=== PATIENT | male | born 1975 | race Caucasian/White ===

== ENCOUNTER 2024-09-05 11:31 | Emergency (ER) | payer OTHER, SELFPAY ==
[2024-09-05 11:38] VITALS: BP 158/97; PULSE 62; RESP 18; TEMP 36.3; O2SAT 99; BMI 33.6
--- NOTE | 2024-09-05 11:46 | ED_ITS ---
HPI - General Adult General Chief complaint: Animal Bite Stated complaint: facial dog bite Time Seen by Provider: 09/05/24 11:46 Source: patient, RN notes reviewed and old records reviewed Mode of arrival: ambulatory Limitations: no limitations History of Present Illness ED Provider: Pete GRUBBS narrative: 49-year-old male presents for evaluation of a dog bite. Patient reports that he was bit by his own dog 2 days ago. He was bit on the nose and upper lip. He went to [facility] the time of the injury but left without being seen due to wait time. He tried to follow up with his primary doctor to get antibiotics but they referred him back to the emergency department. Patient reports that he found a chunk of his nose on the ground when he cleaned up the mess. His pain worsened this morning prompting him to seek re-evaluation. Denies any fevers or chills He reports that his dog was given its rabies shots the dog has been put down Related Data Previous Rx's ?Medication ?Instructions ?Recorded amoxicillin 875 mg-potassium 1 tab PO Q12H #20 tabs 09/05/24 clavulanate 125 mg tablet Allergies Allergy/AdvReac Type Severity Reaction Status Date / Time No Known Allergies Allergy Unknown Verified 09/05/24 11:39 Review of Systems 2 Constitutional: Constitutional: Denies body ache(s), Denies chills, Denies fever(s) and Denies headache(s) ENT: Denies headache(s) Cardiovascular: Cardiovascular: Denies chest pain and Denies dyspnea Respiratory: Respiratory: Denies cough and Denies dyspnea Integumentary/Breasts: Skin/Breast: Reports erythema and Reports wounds Neurologic: Denies headache(s) PMFSH Social History Social History Advance Directives: No Advance Directives Information Provided: Yes Physical Exam ED Vital Signs: Vital Signs - 24 hr 09/05/24 11:38 09/05/24 12:07 Temperature 97.3 F 97.3 F Pulse Rate 62 62 Respiratory Rate 18 18 Blood Pressure 158/97 H 158/97 H Pulse Oximetry 99 99 Oxygen Delivery Method Room Air Room Air BMI result Body Mass Index 33.6 Const General: healthy appearing, comfortable, no acute distress, alert and awake Nutritional Appearance: well nourished Orientation/consciousness: patient oriented x3 HENMT Other: There is a bite wound to the right side of the nose. There is a small avulsion injury of the skin of the nose. There is some surrounding erythema and edema. No active drainage. There is a small contusion to the upper lip without puncture wound. No septal hematoma or intranasal abscess Eyes Eyelids: Yes eyelids normal Conjunctivae: conjunctivae normal Sclerae: sclerae normal Corneas: corneas normal Pupils: Equal, round and reactive pupils present EOM: EOMs intact bilaterally Neck Neck: Yes full ROM Resp Effort & Inspection: normal respiratory effort, able to speak in complete sentences and not labored GI Inspection: No distended Palpation (GI): Soft to palpation, not firm, nontender, no guarding and not rigid Skin General skin exam: elasticity normal Neuro General: patient oriented x3 Cranial nerves: Yes Equal, round and reactive pupils present and Yes Bilaterally intact EOM present Cognition (Neuro): normal cognition Extrem Other: Moving all extremities well without any obvious deformities Medications Administered Discontinued Medications Generic Name Dose Route Start Last Admin Trade Name Freq PRN Reason Stop Dose Admin Amoxicillin/Clavulanate Potassium 875 mg 09/05/24 11:46 09/05/24 12:06 Amoxicillin/Potassium Clav 875 Mg Tablet PO 09/05/24 11:47 875 mg ONCE ONE Administration Diphtheria/Tetanus/Acell Pertussis 0.5 ml 09/05/24 11:46 09/05/24 12:06 Diphth,Pertus(Acell),Tet Adult 0.5 Ml Syringe IM 09/05/24 11:47 0.5 ml .ONCE ONE Administration Medical Decision Making Medical Decision Making MDM Narrative: 49-year-old male presents for evaluation of a dog bite to his nose. This was his own dog which she ultimately already put down. The patient does not know when his last tetanus was. He will require Augmentin for the dog bite as he is developing a skin infection of the nose. Tetanus will be updated. There was no evidence of drainable abscess. Wound was cleaned. He will be discharged with the oral antibiotics and encouraged to follow up with his primary doctor. He was encouraged to follow up with Plastic surgery for follow-up as well. Differential Diagnosis Differential Diagnoses: The differential diagnosis associated with the presentation includes Dog bite Puncture wound Cellulitis Abscess Discharge Plan Discharge Clinical Impression: Dog bite Patient Disposition: Home, Self-Care Instructions: Animal Bite (ED) Additional Instructions: Apply Bacitracin topically twice per day Take Augmentin twice daily for 10 days. Your tetanus was updated today and is good for 5-10 years. It is very important to keep the wound out of the sun When the wound heals, you should be diligent about applying sunscreen throughout the summer. Follow up with your primary doctor. You may wish to see plastic surgery for a consult depending on how the wound heals. Prescriptions: New amoxicillin-pot clavulanate 875-125 mg tablet 1 tab PO Q12H Qty: 20 0RF Interventions: ED Discharge Assessment Last Done: 09/05/24 12:07 Discharge Date/Time: 09/05/24 12:16 Print Language: Italian
[2024-09-05] MEDS: Amoxicillin/Potassium Clav 875 MG TABLET PO (12:06)
[2024-09-05] MEDS: Diphth,Pertus(ACell),Tet Adult 0.5 ML SYRINGE IM (12:06)
[2024-09-05 12:07] VITALS: BP 158/97; PULSE 62; RESP 18; TEMP 36.3; O2SAT 99
--- OUTSIDE RECORDS SUMMARY | 2024-09-05 12:51 | XMS_ITS | Encounter Summary ---
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 Name Role Phone Unavailable Primary Care Provider Unavailabl e Reason for Visit * Reason Comments Animal Bite UNKNOWN VACCINES Encounter Details Date Type Department Care Team (Late st Contact Info) Description 09/03/2024 10:49 PM EDT - 09/04/2024 12:58 AM EDT Emergency [facility] Emergency [address] [place] [address] Discharge Disposition: Home or Self Care Social History Tobacco Use Types Packs/Day Years Used Date Smoking Tobacco: Never Assessed Sex and Gender Information Value Date Recorded Sex Assigned at Not on file Legal Sex Male 8:24 PM EST Gender Identity Not on file Sexual Orientation Not on file documented as of this encounter Last Filed Vital Signs Vital Sign Reading Time Taken Comments Blood Pressure 146/88 09/03/2024 11:09 PM EDT Pulse 78 09/03/2024 11:09 PM EDT Temperature 36.6 ??C (97.9 ??F) 09/03/2024 11:09 PM E DT Respiratory Rate 20 09/03/2024 11:09 PM EDT Oxygen Saturation 97% 09/03/2024 11:09 PM EDT Inhaled Oxygen Concentration - - Weight 106 kg (234 lb) 09/03/2024 11:09 PM EDT Height 177.8 cm (5' 10 ) 09/03/2024 11:09 PM EDT Body Mass Index 33.58 09/03/2024 11:09 PM EDT documented in this encounter Discharge Disposition Disposition Code Departure Means Destination Comment s Home or Self Care Educated against leaving and receiving proper and timely wound care. Verbalized understanding, stating he is leaving and will return in the morning. documented in this encounter Progress Notes * Elis Cain RN - 09/03/2024 11:10 PM EDT PT WAS PLAYING WITH DOG WHEN HE WAS BIT ON THE FACE. UNKNOWN VACCINE STATUS OF DOG. PT MISSING THE TIP OF HIS NOSE. MD IN TRIAGE TO ASSESS PT. GAUZE APPLIED. documented in this encounter Plan of Treatment Not on file documented as of this encounter Visit Diagnoses Not on filedocumented in this encounter
--- OUTSIDE RECORDS SUMMARY | 2024-09-05 12:51 | XMS_ITS | Clinical Summary ---
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 Name Role Phone Unavailable Primary Care Provider Unavailabl e Allergies No known active allergies Encounters Date Type Department Care Team Description 09/03/2024 10:49 PM EDT - 09/04/2024 12:58 AM EDT Emergency [facility] Emergency [address] [place] [address] Discharge Disposition: Home or Self Care from Last 3 Months Medical History Medical History Date Comments AK (mitral incompetence) Social History Tobacco Use Types Packs/Day Years Used Date Smoking Tobacco: Never Assessed Sex and Gender Information Value Date Recorded Sex Assigned at Not on file Legal Sex Male 8:24 PM EST Gender Identity Not on file Sexual Orientation Not on file Obstetrics History Last Filed Vital Signs Vital Sign Reading [...] Mass Index 33.58 09/03/2024 11:09 PM EDT Plan of Treatment Health Maintenance Due Date Last Done Comments Hepatitis B Vaccines (1 of 3 - 19+ 3-dose series) 07/21/1994 COVID-19 Vaccine (2023-2 5 season) 2023 Cholesterol Screening (Lipid Panel) 02/16/2024 Colorectal Cancer Screening: Colonoscopy 02/16/2024 Depression Screening 02/16/2024 HIV Screening 02/16/2024 Hepatitis C Screening 02/16/2024 Social Influencers of Health Screening 02/16/2024 Hypertension/CHF/CAD Annual BMP Blood Test 09/04/2024 Influenza Vaccine (Season Ended) 2024 05/27/2019, 04/01/2013 DTaP,Tdap,and Td Vaccines (3 - Td or Tdap) 05/27/2029 05/27/2019, 04/01/2013 Pneumococcal Vaccine: Pediatrics (0 to 5 Years) and At-Risk Patients (6 to 64 Years) Completed 09/20/2022 HIB Vaccines Aged Out No longer eligi ble based on patient's age to complete this topic HPV Vaccines Aged Out No longer eligi ble based on patient's age to complete this topic Hepatitis A Vaccines Aged Out No long er eligible based on patient's age to complete this topic IPV Vaccines Aged Out No longer eligi ble based on patient's age to complete this topic MMR Vaccines Aged Out No longer eligi ble based on patient's age to complete this topic Meningococcal ACWY Vaccine Aged Out N o longer eligible based on patient's age to complete this topic Meningococcal B Vaccine Aged Out No l onger eligible based on patient's age to complete this topic RSV Immunization Patients Under 20 months Aged Out No longer eligible b ased on patient's age to complete this topic Varicella Vaccines Aged Out No longer eligible based on patient's age to complete this topic
== END 2024-09-05 12:16 | disposition home or self-care (01) ==
PROVIDERS: Emergency Provider Emergency Medicine Emergency Medical Services; PCP Nurse Practitioner Family
DX: S01.25XA Open bite of nose, initial encounter (principal); S01.551A Open bite of lip, initial encounter; W54.0XXA Bitten by dog, initial encounter; Y93.9 Activity, unspecified; Y92.9 Unspecified place or not applicable; Y99.9 Unspecified external cause status
CPT/HCPCS: 90471; 90715; 99282; 99284

== ENCOUNTER 2025-01-04 15:10 | Inpatient (IN) | payer OTHER, SELFPAY ==
[2025-01-04] VITALS (33 sets, daily range): BP systolic 93–184; BP diastolic 46–104; PULSE 67–107; RESP 16–21; TEMP 35–36.9; O2SAT 86–99; BMI 39.5; BMI 37.6
--- NOTE | ~2025-01-04 | XR_ITS ---
CLINICAL HISTORY: intubated 1 view chest x-ray. Comparison:: 01/04/2025 Findings: No consolidation. No pneumothorax. Heart size stable and unchanged from previous exam. No acute fracture. Impression: Poor inspiratory effort with crowding of blood vessels and mild atelectasis in both lung bases. Transesophageal gastric catheter is coiled in the body and antrum of the stomach. Endotracheal tube tip is located 4.5 cm above the fela. No pneumomediastinum. This document has been electronically signed by: Ja White MD on 01/04/2025 17:36:52
--- NOTE | ~2025-01-04 | XR_ITS ---
CLINICAL HISTORY: central line placement 1 view chest x-ray Comparison: CR - XR CHEST 1V - 01/04/25 17:05 EDT Findings: Bibasilar hazy opacities with low lung volumes. There is a small to moderate right pleural effusion, similar to prior. There is a new left IJ central venous catheter, without pneumothorax. Tip is located at the confluence between the left brachiocephalic vein in the SVC. The endotracheal tube tip is located 5 cm above the fela. Enteric tube courses into the stomach, tip is not included on this study. Normal size heart. No acute fracture. IMPRESSION: 1. Left IJ central venous catheter with tip at the confluence with the brachiocephalic vein in the SVC. No pneumothorax. 2. Bibasilar atelectasis and small to moderate right pleural effusion. This document has been electronically signed by: Ramon Chao MD on 01/04/2025 19:35:57
--- NOTE | ~2025-01-04 | XR_ITS ---
CLINICAL HISTORY: possible aspiration, cough --- Additional Notes or Special Instructions: [id number] 1 view chest x-ray Comparison: None provided Findings: The lungs are under expanded. Heart size is normal. No acute fracture. IMPRESSION: 1. No acute cardiopulmonary findings. 2. Lung underexpansion. This document has been electronically signed by: Ritesh Blackwell MD on 01/04/2025 16:32:50
--- NOTE | 2025-01-04 15:37 | ECG_ITS ---
Test Reason : AMS Blood Pressure : */* mmHG Vent. Rate : 70 BPM Atrial Rate : 70 BPM P-R Int : 144 ms QRS Dur : 100 ms QT Int : 454 ms P-R-T Axes : 50 12 14 degrees QTcB Int : 490 ms Normal sinus rhythm RSR' or QR pattern in V1 suggests right ventricular conduction delay Nonspecific T wave abnormality Prolonged QT Abnormal ECG When compared with ECG of 28-Feb-2009 13:54, Vent. rate has decreased by 38 bpm Minimal criteria for Inferior infarct are no longer Present ST no longer depressed in Anterolateral leads Referred By: Baltazar Augustine Electronically Signed By: GRADY IBRAHIM MD
--- NOTE | 2025-01-04 15:41 | ED.PSYCH ---
HPI - Psych General Chief Complaint: Psychiatric Symptoms Stated Complaint: SI, took unk amount of pills, etoh Time Seen by Provider: 01/04/25 15:19 Related Data Home Medications ?Medication ?Instructions ?Recorded ?Confirmed albuterol sulfate 90 mcg/actuation 2 puff inhalation QID PRN wheezing 01/04/25 01/04/25 aerosol inhaler (Ventolin HFA) aspirin 81 mg tablet,delayed 81 mg PO DAILY 01/04/25 01/04/25 release cetirizine 10 mg tablet 10 mg PO DAILY 01/04/25 01/04/25 citalopram 20 mg tablet 20 mg PO DAILY 01/04/25 01/04/25 famotidine 40 mg tablet 40 mg PO BID 01/04/25 01/04/25 fluticasone furoate 100 1 inh inhalation DAILY 01/04/25 01/04/25 mcg/actuation blister powder for inhalation fluticasone propionate 50 1 spray intranasal BID 01/04/25 01/04/25 mcg/actuation nasal spray,suspension Allergies Allergy/AdvReac Type Severity Reaction Status Date / Time No Known Allergies Allergy Unknown Verified 01/04/25 15:52 [facility] Social History Social History Household Members: Unknown / Unable to assess Housing: Unknown / Unable to assess Patient Tobacco Use Status: Tobacco use Unknown Physical Exam Exam: Exam: EXAM: Gen: Arrived ill appearing, diaphoretic. Occassionally aggressive and agitated. pale, occassionally vomiting. Head: Atraumatic Eyes: Anicteric, Normal conjunctiva.pupils 1mm symmetric ENT: Moist mucosa, no pallor. Neck: Supple. Respiratory: Breathing comfortably, No distress.Clear to auscultation bilaterally, symmetric chest expansion, No wheeze, rales, ronchi. Cardiovascular: tachy and regular. No murmurs or rub. Well perfused periphery, warm extremities. No edema. Abdominal: Soft, no objective distension. No palpable masses or obvious organomegaly. No focal tenderness, no guarding, no rebound tenderness or other peritoneal findings. Neuro: Alert. Gross movement of all extremities intact. no convulsive activity Vital signs: See flowsheet Vital Signs: Vital Signs: Last Vital Signs Temp 99 F 01/05/25 21:00 Pulse 63 01/05/25 21:00 Resp 12 01/05/25 21:00 BP 101/53 L 01/05/25 21:00 Pulse Ox 92 01/05/25 21:00 O2 Del Method Mechanical Ventil ation 01/05/25 21:00 FiO2 25 01/05/25 21:00 BMI result Body Mass Index 39.5 Medications Administered Generic Name Dose Route Start Last Admin Trade Name Jesusq PRN Reason Stop Dose Admin Ceftriaxone Sodium 2 gm 01/05/25 12:00 01/05/25 12:01 Ceftriaxone Sodium 2 Gm Vial IVPUSH 2 gm Q24H [place] Administration Chlorhexidine Gluconate 15 ml 01/04/25 18:00 01/05/25 16:19 Chlorhexidine Gluc Oral Rinse 15 Ml Mouthwash BUCCAL 15 ml Q8H [place] Administration Heparin Sodium (Porcine) 5,000 unit 01/04/25 18:00 01/05/25 18:00 Heparin Sodium,Porcine 5,000 Unit/Ml Vial SUBCUT 5,000 unit Q8H BR[place] Administration Norepinephrine Bitartrate 8 mg in 250 mls @ 0 mls/hr 01/04/25 17:00 01/05/25 14:36 Levophed IVCONT 0 mcg/kg/min .Q0M BR[place] 0 mls/hr Protocol Titration Per Protocol Propofol 1,000 mg in 100 mls @ 0 mls/hr 01/04/25 17:30 01/05/25 20:25 Diprivan IVCONT 50 mcg/kg/min .Q0M BR[place] 37.42 mls/hr Protocol Administration Per Protocol Fentanyl 1,000 mcg in 100 mls @ 0 mls/hr 01/04/25 17:30 01/05/25 19:45 Sublimaze/Ns IVCONT 50 mcg/hr .Q0M BR[place] 5 mls/hr Protocol Administration Per Protocol Lactated Ringer's 1,000 mls @ 100 mls/hr 01/04/25 18:00 01/05/25 14:34 Lr IVCONT Not Given .Q10H [place] Dextrose/Sodium Chloride 1,000 mls @ 100 mls/hr 01/04/25 23:30 01/05/25 18:08 D5ns IVCONT 100 mls/hr .Q10H [place] Administration Pantoprazole Sodium 40 mg 01/05/25 06:30 01/05/25 05:56 Pantoprazole Sodium 40 Mg/10 Ml Vial IVPUSH 40 mg DAILY@0630 [place] Administration Discontinued Medications Generic Name Dose Route Start Last Admin Trade Name Marlene PRN Reason Stop Dose Admin Charcoal 50 gm 01/04/25 17:22 01/04/25 18:11 Activated Charcoal 50 Gm/240 Ml Oral.Susp PO 01/04/25 17:23 50 gm ONCE ONE Administration Dextrose 25 gm 01/04/25 23:19 01/04/25 23:30 Dextrose 50 % 25 Gm/50 Ml Syringe IVPUSH 01/04/25 23:20 25 gm ONCE ONE Administration Lactated Ringer's 1,000 mls @ 999 mls/hr 01/04/25 15:45 01/04/25 17:45 Lr IV 01/04/25 16:45 Infused .Q1H1M [place] Infusion Lactated Ringer's 1,000 mls @ 999 mls/hr 01/04/25 17:15 01/04/25 18:03 Lr IV 01/04/25 18:15 Infused .Q1H1M [place] Infusion Pantoprazole Sodium 40 mg/ 110 mls @ 400 mls/hr 01/04/25 18:00 01/04/25 20:38 Sodium Chloride IV Infused DAILY@0630 [place] Infusion Insulin Human Regular 10 unit 01/04/25 23:19 01/04/25 23:30 Insulin Regular, Human 100 Unit/Ml 10 Ml Vial IVPUSH 01/04/25 23:20 10 unit ONCE ONE Administration Midazolam HCl 4 mg 01/04/25 17:14 01/04/25 17:13 Midazolam Hcl 2 Mg/2 Ml Vial IVPUSH 01/04/25 17:15 4 mg ONCE ONE Administration Rocuronium [place] 80 mg 01/04/25 17:10 01/04/25 16:57 Rocuronium [place] 50 Mg/5 Ml Vial IVPUSH 01/04/25 17:11 80 mg ONCE ONE Administration Sodium Bicarbonate 50 meq 01/05/25 00:39 01/05/25 01:09 Sodium Bicarbonate 8.4% 50 Meq/50 Ml Syringe IVPUSH 01/05/25 00:40 50 meq ONCE ONE Administration Medical Decision Making Medical Decision Making MDM Narrative: Medical Decision Makin-year-old male with suicidal ingestion. Polypharmacy ingestion with best estimates provided below. Patient arrived hypoxic on room air 86% put on OxyMask. He was initially normotensive sinus rhythm in the 70s. He did not provide any history himself. Patient quickly became diaphoretic and hypotensive we initiated the aggressive crystalloid resuscitation. Initial QTC 490 slightly prolonged. A sinus rhythm no ischemic changes. The patient does have a history of coronary artery disease QTc on first ecg 490. Around 17:05 the patient became more sedated, he began vomiting without airway protective reflexes and we decided to intubate him. Norepinephrine was initiated prior to intubation to prevent developing Justino intubation shock. After the procedure which was successful see procedure note, the patient was sedated with propofol and fentanyl. Preliminary Favored Differential Diagnosis: Polypharmacy ingestion, serotonin syndrome, QT prolongation, metabolic encephalopathy, psych/suicidal ideation with ingestion, hypovolemic shock, toxic logic shock, aspiration pneumonitis among additional considered etiologies Testing Interpreted Independently: ECG QTC 490 no acute ischemic changes. Sinus rhythm. Chest x-ray 1.: ET tube adequate position, OG tube in place adequate poor inspiratory effort and/or at the expiratory cycle of vent. Chest x-ray 2.: Adequate position of left IJ Radiology or Lab testing Results Reviewed: ?See below for details Consults: ?Poison control recommends Q 2hr VBG/lactic acid for the 1st 3 hours recommended charcoal through the OG tube. Bakery Technician accepts the patient for admission agreeable to care provided thus far Independent Historians/External Chart Reviews: ?I spoke at length to the patient's partner who was at home we discussed and went through the medication bottles Social Determinants of Health Impacting MDM/Planning: ?See below for details Lab Data MDM Lab Attestation statement: I reviewed the patient's lab results. 01/05/25 05:53 01/05/25 11:34 Labs: Lab Results 01/04/25 01/04/25 Range/Units 15:44 16:09 WBC 7.4 (4.8-10.8) X10*3/uL RBC 4.42 L (4.60-5.80) X10*6/uL Hgb 14.1 (14.0-18.0) g/dl Hct 39.8 L (42.0-52.0) % MCV 90.0 (80.0-98.0) fL MCH 31.9 (27.0-33.0) pg MCHC 35.4 (31.0-36.0) g/dl RDW 13.2 (11.0-16.0) % Plt Count 250 (160-400) X10*3/uL MPV 9.9 (9.4-12.4) fL Immature Gran % (Auto) 0.5 H (0.0-0.4) % Neut % (Auto) 60.0 (45-73) % Lymph % (Auto) 26.4 (20-40) % [place] % (Auto) 9.5 (2-11) % Eos % (Auto) 2.8 (0-4) % Baso % (Auto) 0.8 (0-2) % Lymph # (Auto) 2.0 (1.2-4.9) X10*3/uL [place] # (Auto) 0.7 (0.1-1.2) X10*3/uL Eos # (Auto) 0.2 (0.0-0.4) X10*3/uL Baso # (Auto) 0.1 (0.0-0.2) X10*3/uL Abs Immat Gran (auto) 0.04 H (0.00-0.03) X10*3/uL Absolute Neuts (auto) 4.4 (2.0-8.3) x10*3/uL Absolute Nucleated RBC 0.000 (0.0-0.012) X10*3/uL Nucleated RBC % (auto) 0.0 (0.0-0.2) /100WBC Hold Purple Top SEE NOTE Hold Blue Top SEE NOTE Sodium 137 (135-145) mmol/L Potassium 4.4 (3.3-5.1) mmol/L Chloride 103 (96-108) mmol/L Carbon Dioxide 19 L (22-29) mmol/L Anion Gap 19 (12-20) BUN 17 H (9-16) mg/dL Creatinine 1.40 (0.5-1.4) mg/dL Estim Creat Clear Calc 84.5 Estimated GFR 54 POC Glucose 123 H (60-115) mg/dL Random Glucose 114 (60-115) mg/dL Lactic Acid 2.9 H* (0.5-2.0) mmol/L Calcium 9.0 (8.4-10.2) mg/dL Phosphorus 3.8 (2.7-4.5) mg/dL Magnesium 2.6 (1.6-2.6) mg/dL Total Bilirubin 0.4 (0.0-1.0) mg/dL AST 39 H (5-37) U/L ALT 49 H (0-40) U/L Alkaline Phosphatase 80 (39-117) U/L Total Protein 7.7 (6.5-8.0) g/dL Albumin 4.9 (3.5-5.0) g/dL TSH 2.27 (0.32-4.0) uIU/mL Hold Yellow Top See Note Salicylates < 5.0 L (15-30) mg/dL Acetaminophen < 3 (<30) mcg/mL Ethyl Alcohol 135 mg/dL Radiology Impression Discussion of test interpretation with radiology: I have reviewed the radiologist's reading. Independent Historian Clinical information obtained from an independent historian. History obtained from or confirmed by: Other Female partner/girlfriend I spoke to the phone on her at about 16:20 she did not witnessed the patient directly ingesting medications but she has the bottles with her we tried to go through them together over the phone to see how much was missing. In summary it appears the patient took unknown quantity of 40 mg citalopram he did have a total of 90 day supply but she is unclear based on the bottles and some scattered pills on the floor how much of that he took. There was a bottle of ibuprofen that appeared empty to her on the floor outside the home. There was a bottle of olanzapine that it was questionably a 90 day supply of 7.5 mg tablets that she believes was half empty. There was also a half empty bottle of 500 mg metformin tablets she is unsure of the duration supply that was in that bottle. In summary: Unknown 40 mg citalopram ingestion, unknown ibuprofen ingestion, best estimate half 45 tablets of 7.5 mg olanzapine, best estimate large volume metformin 500 mg ingestion. Procedures Procedure Narrative Procedure Narrative: PROCEDURE NOTE Procedure: Endotracheal Intubation Performed by: Baltazar Augustine MD Indication: Indication [place] Protocol: a time out was performed and the correct patient was verified ? Monitoring: Continuous monitoring of heart rate, respiratory rate, pulse oximetry and ETCO2. Pre-oxygenation prior to procedure via OxyMask. ? The patient was s did not require sedation and was paralyzed with rocuronium. Using video laryngoscopy, a # 7.5 endotracheal tube was visualized passing through the cords and secured . Placement was confirmed with end-tidal CO2 monitor, bilateral breath sounds and absence of breath sounds in the epigastrium. ? The patient was placed on the ventilator. Ventilator settings: ? The patient tolerated the procedure well. Post intubation films were obtained which showed proper placement and position. __ PROCEDURE NOTE Procedure: OG Placement Performed by: Provider Name Indication: gastric decompression ? Procedure: A 14 Fr OG tube was placed in the stomach through the mouth.? Position of the tube was confirmed by auscultating over the stomach during insufflation of air through the tube.? Gastric contents were aspirated. Complications: none ___ Procedure Note Procedure: Central Venous Catheter Insertion- Left Internal Jugular Indication: Venous access, multiple medications, monitoring Performed by: Baltazar Augustine MD [place] Protocol: a time out was performed and the correct patient and site were verified ? The patient was placed in Trendelenburg. Anesthesia was obtained with local infiltration of 5 ml 1% lidocaine. Hand hygiene was performed prior to procedure. Chlorhexidine used to prep the skin and dried for 2 minutes prior to skin puncture. Traffic was limited during the procedure. Full barrier precaution utilized.? Dynamic ultrasound guidance used and the left internal jugular vein was cannulated. A 7 marshallese triple lumen catheter was placed using the Seldinger technique. All lines flushed and jarrett nonpulsatile dark venous blood appropriately. The line was secured with sutures at 16? cm. A biopatch and dressing was placed over the site. The patient tolerated the procedure well. A post-line CXR was reviewed demonstrating the tip of the catheter in the SVC. ? Post-Procedure Diagnosis: same as indication Complications: none Estimated Blood Loss:? minimal Specimens Removed: no Prosthetic devices/implants: no Microwave Radio Technician(s): none ? Critical Care Time Critical Care Time Critical Care Time: Yes Total Critical Care Time: 90 Attestation: ED Critical Care: Severe metabolic encephalopathy/overdose QT prolongation, aspiration pneumonitis, acute hypoxic respiratory failure Authorized and Performed by: Baltazar Augustine MD Total critical care time: Approximately 90 Due to a high probability of clinically significant, life threatening deterioration, the patient required my highest level of preparedness to intervene emergently and I personally spent this critical care time directly and personally managing the patient. This critical care time included obtaining a history; examining the patient; pulse oximetry; ordering and review of studies; arranging urgent treatment with development of a management plan; evaluation of patient's response to treatment; frequent reassessment; and, discussions with other providers. This critical care time was performed to assess and manage the high probability of imminent, life-threatening deterioration that could result in multi-organ failure. It was exclusive of separately billable procedures and treating other patients and teaching time. Discharge Plan Discharge Clinical Impression: Intentional drug overdose Patient Disposition: Admitted As Inpatient Interventions: [place]-Suicide Risk Severity Scale Last Done: 01/04/25 16:40 Discharge Date/Time: 01/04/25 19:38
[2025-01-04 15:50] LABS: MANUAL DIFF FLAG NO
[2025-01-04 15:51] LABS: Hematocrit 39.8 % (42.0-52.0); Hemoglobin 14.1 g/dl (14.0-18.0); Imm Gran Abs Auto 0.04 X10*3/uL (0.00-0.03); Imm Gran Pct Auto 0.5 % (0.0-0.4); Lymphocytes Absolute Auto 2.0 X10*3/uL (1.2-4.9); Mean Corpuscular HGB Conc 35.4 g/dl (31.0-36.0); Mean Corpuscular Hemoglobin 31.9 pg (27.0-33.0); Mean Corpuscular Volume 90.0 fL (80.0-98.0); NRBC Abs Auto 0.000 X10*3/uL (0.0-0.012); NRBC Pct Auto 0.0 /100WBC (0.0-0.2); Platelet Count 250 X10*3/uL (160-400); Red Blood Count 4.42 X10*6/uL (4.60-5.80); White Blood Count 7.4 X10*3/uL (4.8-10.8)
[2025-01-04 16:13] LABS: Glucose, Whole Blood 123 mg/dL (60-115)
[2025-01-04 16:14] LABS: Alanine Aminotransferase 49 U/L (0-40); Albumin Level 4.9 g/dL (3.5-5.0); Alkaline Phosphatase 80 U/L (39-117); Anion Gap 19 (12-20); Aspartate Amino Transferase 39 U/L (5-37); Blood Urea Nitrogen 17 mg/dL (9-16); Calcium 9.0 mg/dL (8.4-10.2); Carbon Dioxide 19 mmol/L (22-29); Chloride 103 mmol/L (96-108); Creatinine Clr Calc Pharmacy 84.5; Estimated Glomerular Filt Rate 54; Magnesium 2.6 mg/dL (1.6-2.6); Potassium 4.4 mmol/L (3.3-5.1); Sodium 137 mmol/L (135-145); Total Protein 7.7 g/dL (6.5-8.0)
[2025-01-04] MEDS: Lactated Ringers 1,000 ML 999 ML IV ×2 (16:18→16:58)
[2025-01-04 16:21] LABS: Acetaminophen LAB < 3 mcg/mL (<30); Salicylate < 5.0 mg/dL (15-30)
--- OUTSIDE RECORDS SUMMARY | 2025-01-04 16:27 | XMS_ITS | Clinical Summary ---
Author Organization [facility] Address [address] [place] [phone] Phone Care Team Providers Care Registered Nurse Ambulatory Name Role Phone Unavailable Primary Care Provider Unavailabl e Allergies No known active allergies Medical History Medical History Date Comments HI (mitral incompetence) Social History Tobacco Use Types [...] 78 09/03/2024 11:09 PM EDT Temperature 36.6 C (97.9 F) 09/03/2024 11:09 PM EDT Respiratory Rate 20 09/03/2024 11:09 PM EDT [...] of 3 - 19+ 3-dose series) 07/21/1994 Cholesterol Screening (Lipid Panel) 02/16/2024 Colorectal Cancer Screening: Colonoscopy 02/16/2024 HIV Screening 02/16/2024 Hepatitis C Screening 02/16/2024 Social Influencers of Health Screening 02/16/2024 Depression Screening 04/24/2024 Hypertension/CHF/CAD Annual BMP Blood Test 09/04/2024 COVID-19 Vaccine ( - 2023-2 5 season) 2024 Influenza Vaccine (#1) 2024 0, 04/01/2013 DTaP,Tdap,and Td Vaccines (3 - Td or Tdap) 05/27/2029 05/27/2019, 04/01/2013 Pneumococcal Vaccine: Pediatrics (0 to 5 Years) and At-Risk Patients (6 to 49 Years) Completed 09/20/2022 HIB Vaccines Aged Out [...] on patient's age to complete this topic Insurance [place] - [place]
[2025-01-04 16:28] LABS: Thyroid Stimulating Hormone 2.27 uIU/mL (0.32-4.0)
--- NOTE | 2025-01-04 16:31 | PC.NURSE ---
late entry PD to residence for suicidal patient, upon their arrival they stated that patient ingested multiple unknown medications. for EMS, patient was awake and answering questions. upon patient arrival to ED increasingly drowsy/lethargic/hypoxic - placed on oxymask 7L. unable to answer questions at this time. pin point pupils, security at bedside to assist with changeover, patient projectile vomiting. multiple staff at bedside to assist with changeover and iv insertion as patient remains altered and combative. responds to painful stimuli. IV successfully established in LAC. patient found to be diaphoretic and hypotensive, provider to bedside. IV fluids infusing with pressure bag. additional IV established. provider able to speak with partner on phone who states Unknown 40 mg citalopram ingestion, unknown ibuprofen ingestion, best estimate half 45 tablets of 7.5 mg olanzapine, best estimate large volume metformin 500 mg ingestion. patient observer is in place for patient safety.
--- NOTE | 2025-01-04 17:14 | ECG_ITS ---
Test Reason : rhythm check Blood Pressure : */* mmHG Vent. Rate : 74 BPM Atrial Rate : 74 BPM P-R Int : 170 ms QRS Dur : 98 ms QT Int : 412 ms P-R-T Axes : 49 -1 15 degrees QTcB Int : 457 ms Normal sinus rhythm RSR' or QR pattern in V1 suggests right ventricular conduction delay Borderline ECG When compared with ECG of 04-Jan-2025 16:12, T wave inversion no longer evident in Anterior leads Referred By: Grupo Cifuentes Electronically Signed By: GRADY IBRAHIM MD
[2025-01-04] MEDS: fentaNYL citrate/NS 1,000 MCG/100 ML PLAST..BAG 2.5 MCG IVCONT (17:54)
[2025-01-04 17:57] LABS: Reflex Lactate? Lactic Acid Added
--- NOTE | 2025-01-04 18:03 | P.HPCC_ITS ---
History of Present Illness Date of Service: 01/04/25 Chief Complaint: unresponsive 49 years old male with PMH of possibly diabetes and depression presented to the hospital with suiscidal ideation after ingesting large amount of metformin, olanzapine and ibuprofen. He became hypotensive and diaphoretic and actively vomiting and aspirating so was intubated and placed on ventilator support. He is also on levophed for vasopressor support. His QTc is 490 Review of Systems 2 Review of Systems: unable to obtain [facility] Social History Social History Advance Directives: No Advance Directives Information Provided: No Meds Allergies Allergy/AdvReac Type Severity Reaction Status Date / Time No Known Allergies Allergy Unknown Verified 01/04/25 15:52 Active Medications: Current Medications Chlorhexidine Gluconate (Chlorhexidine Gluc Oral Rinse 15 Ml Mouthwash) 15 ml BUCCAL Q8H [place] Heparin Sodium (Porcine) (Heparin Sodium,Porcine 5,000 Unit/Ml Vial) 5,000 unit SUBCUT Q8H [place] Norepinephrine Bitartrate (Levophed) 8 mg in 250 mls @ 0 mls/hr IVCONT .Q0M BR[place]; Protocol Last Admin: 01/04/25 16:57 Dose: 0.05 mcg/kg/min, 11.69 mls/hr Lactated Ringer's (Lr) 1,000 mls @ 999 mls/hr IV .Q1H1M [place] Stop: 01/04/25 18:15 Last Admin: 01/04/25 16:58 Dose: 999 mls/hr Propofol (Diprivan) 1,000 mg in 100 mls @ 0 mls/hr IVCONT .Q0M [place]; Protocol Last Admin: 01/04/25 17:47 Dose: 30 mcg/kg/min, 22.45 mls/hr Fentanyl (Sublimaze/Ns) 1,000 mcg in 100 mls @ 0 mls/hr IVCONT .Q0M [place]; Protocol Last Admin: 01/04/25 17:54 Dose: 25 mcg/hr, 2.5 mls/hr Lactated Ringer's (Lr) 1,000 mls @ 100 mls/hr IVCONT .Q10H [place] Pantoprazole Sodium 40 mg/ (Sodium Chloride) 110 mls @ 400 mls/hr IV DAILY@0630 [place] Fentanyl (Sublimaze/Ns) 1,000 mcg in 100 mls @ 5 mls/hr IVCONT .Q20H BR[place]; Protocol Naloxone HCl (Naloxone Hcl 0.4 Mg/Ml Vial) 0.2 mg IVPUSH Q2M PRN PRN Reason: Excessive sedation or RR < 8 Naloxone HCl (Naloxone Hcl 0.4 Mg/Ml Vial) 0.2 mg IVPUSH Q2M PRN PRN Reason: Excessive sedation or RR < 8 Physical Exam 2 Vital Signs: Vital Signs: Last Vital Signs Temp 97.5 F 01/04/25 15:50 Pulse 83 01/04/25 17:47 Resp 20 01/04/25 17:47 BP 104/56 L 01/04/25 17:54 Pulse Ox 94 01/04/25 17:47 O2 Del Method Room Air 01/04/25 15:50 FiO2 30 01/04/25 17:25 BMI result Body Mass Index 39.5 General: middle aged male in severe acute distress, ill appearing Nutritional Appearance: well nourished and overweight Eyes: appearance normal, both eyes and all related structures; Alignment and Position: alignment normal and position normal Neck: No lymphadenopathy, no thyromegaly Resp: bilateral air entry equal, no added sounds present Cardio: Regular rate, regular rhythm; Heart sounds: S1 normal heart sound present and S2 normal heart sound present GI: soft, nontender, no guarding, no hepatosplenomegaly : bladder normal to inspection, bladder normal to palpation, no renal angle tenderness Skin: no rashes or lesions noted and elasticity normal Neuro: no focal deficits, moves all extremities Results Labs 01/04/25 15:44 01/04/25 15:44 Labs: Laboratory Results - last 24 hr 01/04/25 01/04/25 15:44 16:09 MCV 90.0 MCH 31.9 MCHC 35.4 RDW 13.2 Plt Count 250 MPV 9.9 Immature Gran % (Auto) 0.5 H Neut % (Auto) 60.0 Lymph % (Auto) 26.4 [place] % (Auto) 9.5 Eos % (Auto) 2.8 Baso % (Auto) 0.8 Lymph # (Auto) 2.0 [place] # (Auto) 0.7 Eos # (Auto) 0.2 Baso # (Auto) 0.1 Abs Immat Gran (auto) 0.04 H Absolute Neuts (auto) 4.4 Absolute Nucleated RBC 0.000 Nucleated RBC % (auto) 0.0 Hold Purple Top SEE NOTE Hold Blue Top SEE NOTE Anion Gap 19 Estim Creat Clear Calc 84.5 Estimated GFR 54 POC Glucose 123 H Random Glucose 114 Lactic Acid 2.9 H* Calcium 9.0 Phosphorus 3.8 Magnesium 2.6 Total Bilirubin 0.4 AST 39 H ALT 49 H Alkaline Phosphatase 80 Total Protein 7.7 Albumin 4.9 TSH 2.27 Hold Yellow Top See Note Salicylates < 5.0 L Acetaminophen < 3 Ethyl Alcohol 135 Assessment and Plan (1) Drug overdose, intentional: Status: Acute (2) Suicidal ideation: Status: Acute (3) Acute respiratory failure: Status: Acute (4) Acute encephalopathy: Status: Acute (5) Cardiogenic shock: Status: Acute Plan Acute encephalopathy: secondary to multiple drug overdose due to suicidal ideation on fentanyl for analgesia and propofol for sedation psych consult once extubated Cardiogenic shock: secondary to multiple medication intake on levophed for vasopressor support karyna monitor QT interval as he ingested multiple pills of olanzapine. Acute hypoxemic respirtory failure: secondary to aspiration pneumonia on ventilator support ventilator management bundle GI: will add activated charcoal Renal: unsure about baseline creatinine creatinine 1.4 will closely monitor renal function, urine output if he develops intractable lactic acidosis will need dialysis for [facility] no concern for infection, not on antibiotics Lines: left triple lumen catheter placed in ED Prophylaxis: heparin, pantoprazole critical care time spent is about 45 mins on admission, evaluation, ventilator management, vasopressor management, sedation management and this time is excluding any procedural time
--- NOTE | 2025-01-04 18:32 | PHA.MEDREC ---
Pharmacy Consult ? Medication Reconciliation Pharmacy has completed the medication reconciliation. Utilized claim history. Patient unable to talk about medications
[2025-01-04 18:40] LABS: Appearance Urine Clear; Glucose Urine UA Negative (Negative); PH 5.5 (5.0-9.0); Specific Gravity - Urine 1.010 (1.005-1.025)
[2025-01-04 18:41] LABS: VBG HCO3 15 mmol/L (22-26); VBG O2 % Saturation 96.0 %
--- NOTE | 2025-01-04 18:44 | PC.NURSE ---
late entry approx 1650 patient began to vomit again, d/t risk for aspiration patient was moved into bed 5 for intubation. 7.5 Et tube 23 at lip. + color change + breath sounds. 14Fr OG tube inserted by provider. verbal order from provider for temp sensing jackson d/t need for ua/dixon and to obtain accurate temperature. medicated per the MAR. two IV in left arm, provider at bedside to place triple lumen. patient remains sedated.
[2025-01-04 18:45] LABS: Venous Blood Gas Refer to POC result
[2025-01-04 18:49] LABS: Cannabinoid Screen Urine Not Detected (Not Detect)
[2025-01-04 18:58] LABS: Alanine Aminotransferase 41 U/L (0-40); Albumin Level 4.5 g/dL (3.5-5.0); Alkaline Phosphatase 72 U/L (39-117); Anion Gap 20 (12-20); Aspartate Amino Transferase 33 U/L (5-37); Blood Urea Nitrogen 18 mg/dL (9-16); Calcium 8.2 mg/dL (8.4-10.2); Carbon Dioxide 16 mmol/L (22-29); Chloride 106 mmol/L (96-108); Creatinine Clr Calc Pharmacy 74.0; Estimated Glomerular Filt Rate 46; Magnesium 2.4 mg/dL (1.6-2.6); Potassium 4.9 mmol/L (3.3-5.1); Sodium 137 mmol/L (135-145); Total Protein 6.9 g/dL (6.5-8.0)
[2025-01-04 19:30] LABS: IDNOW Serial# 16C4AD1C
[2025-01-04 19:31] LABS: COVID-19 Test Negative (Negative)
--- NOTE | 2025-01-04 19:36 | PC.NURSE ---
pt transported to ICU at this time, w/ respiratory, stage technician and RN
[2025-01-04] MEDS: Chlorhexidine Gluc Oral Rinse 15 ML MOUTHWASH BUCCAL (20:21)
[2025-01-04] MEDS: Lactated Ringers 1,000 ML 100 ML IVCONT (20:22)
[2025-01-04 20:33] LABS: Reflex Lactate? Lactic Acid Added
--- NOTE | 2025-01-04 21:19 | ECG_ITS ---
Test Reason : rhythm check Blood Pressure : */* mmHG Vent. Rate : 74 BPM Atrial Rate : 74 BPM P-R Int : 160 ms QRS Dur : 98 ms QT Int : 424 ms P-R-T Axes : 56 1 0 degrees QTcB Int : 470 ms Normal sinus rhythm Possible Left atrial enlargement RSR' or QR pattern in V1 suggests right ventricular conduction delay Nonspecific T wave abnormality Prolonged QT Abnormal ECG When compared with ECG of 04-Jan-2025 21:26, T wave inversion now evident in Anterior leads Referred By: Grupo Cifuentes Electronically Signed By: GRADY IBRAHIM MD
[2025-01-04 23:19] LABS: Alanine Aminotransferase 42 U/L (0-40); Albumin Level 4.7 g/dL (3.5-5.0); Alkaline Phosphatase 75 U/L (39-117); Anion Gap 22 (12-20); Aspartate Amino Transferase 33 U/L (5-37); Blood Urea Nitrogen 18 mg/dL (9-16); Calcium 8.4 mg/dL (8.4-10.2); Carbon Dioxide 15 mmol/L (22-29); Chloride 103 mmol/L (96-108); Creatinine Clr Calc Pharmacy 80.5; Estimated Glomerular Filt Rate 51; Potassium 6.4 mmol/L (3.3-5.1); Sodium 134 mmol/L (135-145); Total Protein 7.4 g/dL (6.5-8.0)
[2025-01-04 23:23] LABS: Glucose, Whole Blood 105 mg/dL (60-115)
[2025-01-05] VITALS (49 sets, daily range): BP systolic 93–131; BP diastolic 46–83; PULSE 57–86; RESP 12–22; TEMP 34.9–37.3; O2SAT 91–96; BMI 35.3
[2025-01-05 00:59] LABS: Reflex Lactate? Lactic Acid Added
--- NOTE | 2025-01-05 01:17 | HO.SKINPHOTO ---
Location: Nose, present on admit
[2025-01-05] MEDS: Chlorhexidine Gluc Oral Rinse 15 ML MOUTHWASH BUCCAL ×3 (03:14→16:19)
[2025-01-05 04:35] LABS: Reflex Lactate? Lactic Acid Added
[2025-01-05 05:58] LABS: VBG HCO3 24 mmol/L (22-26); VBG O2 % Saturation 84.0 %
[2025-01-05 06:00] LABS: MANUAL DIFF FLAG NO
[2025-01-05 06:04] LABS: Venous Blood Gas Refer to POC result
[2025-01-05 06:04] LABS: Hematocrit 37.3 % (42.0-52.0); Hemoglobin 12.7 g/dl (14.0-18.0); Imm Gran Abs Auto 0.05 X10*3/uL (0.00-0.03); Imm Gran Pct Auto 0.3 % (0.0-0.4); Lymphocytes Absolute Auto 1.6 X10*3/uL (1.2-4.9); Mean Corpuscular HGB Conc 34.0 g/dl (31.0-36.0); Mean Corpuscular Hemoglobin 31.8 pg (27.0-33.0); Mean Corpuscular Volume 93.3 fL (80.0-98.0); NRBC Abs Auto 0.000 X10*3/uL (0.0-0.012); NRBC Pct Auto 0.0 /100WBC (0.0-0.2); Platelet Count 231 X10*3/uL (160-400); Red Blood Count 4.00 X10*6/uL (4.60-5.80); White Blood Count 14.5 X10*3/uL (4.8-10.8)
[2025-01-05 06:06] LABS: Glucose, Whole Blood 132 mg/dL (60-115)
--- NOTE | 2025-01-05 06:19 | PC.NURSE ---
Patient admitted to ICU from ED ~19:30 for SI/witnessed toxic ingestion. Patient intubated/vented and sedated on arrival to unit. Discussed 1:1 sitter need with RN commissary production supervisor and covering SEGUNDO Cifuentes; no 1:1 sitter required due to intubated/sedated. Of note, patient's room is located across from/visible from nurses station. Patient arrived on levophed infusing at 0.17mcg/kg/min, propofol infusing at 40mcg/kg/min, and fentanyl infusing at 25mcg/hr. Intubated with 7.5cm ETT noted at 25cm at the lip on arrival. Patient vented ACVC rate 16/vol 450/peep 5/30% Fio2 on initial assessment, fio2 later decreased to 21% by RT. Patient tolerating vent with sedation, though pt still requires soft wrist restraints bilaterally to maintain ETT and other lines, especially during care when increased agitation as evidenced by kicking and attempts to pull ETT and F/C are observed. OG present on arrival as well, remained clamped overnight per PA verbal orders as patient had received activated charcoal in the 18:00 hour per MAR review. Poison Control continues to follow the patient and made recommendations for q4HR EKGs for monitor QTc and increased lactic acid frequency from previously ordered q6HR in place on admit. PA orders for Q4HR EKG and Q4HR lactic acid. PA made aware of all critical results and EKG/QTc trends. Patient potassium elevated overnight critical 6.4. POC Q6HR obtained showing 105. PA notified with orders for 10 units regular insulin IVP and dextrose. One amp Na Bicarb also given per PA orders. Bed alarm on and safety measures in place. Please see shift assessments, tasks in worklist, and MAR for full details. Plan of care continues.
[2025-01-05 06:38] LABS: Albumin Level 4.3 g/dL (3.5-5.0); Alkaline Phosphatase 74 U/L (39-117); Anion Gap 20 (12-20); Aspartate Amino Transferase 27 U/L (5-37); Blood Urea Nitrogen 15 mg/dL (9-16); Calcium 8.6 mg/dL (8.4-10.2); Carbon Dioxide 19 mmol/L (22-29); Chloride 107 mmol/L (96-108); Creatinine Clr Calc Pharmacy 86.6; Estimated Glomerular Filt Rate 59; Magnesium 2.6 mg/dL (1.6-2.6); Potassium 4.7 mmol/L (3.3-5.1); Sodium 141 mmol/L (135-145); Total Protein 7.0 g/dL (6.5-8.0)
[2025-01-05 07:58] LABS: Reflex Lactate? Lactic Acid Added
[2025-01-05 08:51] LABS: ~Lactic Acid-LAB USE ONLY 3.0 mmol/L (0.5-2.0)
--- NOTE | 2025-01-05 09:30 | ECG_ITS ---
Test Reason : QTc monitoring Blood Pressure : */* mmHG Vent. Rate : 63 BPM Atrial Rate : 63 BPM P-R Int : 156 ms QRS Dur : 96 ms QT Int : 452 ms P-R-T Axes : 53 -5 -11 degrees QTcB Int : 462 ms Normal sinus rhythm RSR' or QR pattern in V1 suggests right ventricular conduction delay Minimal voltage criteria for LVH, may be normal variant ( R in aVL ) T wave abnormality, consider anterior ischemia Abnormal ECG When compared to the previous EKG of No significant changes seen Referred By: Victor Hugo Lopez Electronically Signed By: GRADY IBRAHIM MD
[2025-01-05 09:45] LABS: Alanine Aminotransferase 32 U/L (0-40)
[2025-01-05 10:20] LABS: Reflex Lactate? 2 Y
--- NOTE | 2025-01-05 10:52 | PM.CCPN ---
Subjective Subjective Date of Service: 01/05/25 Interval History: On ventilator support this morning, stable vent settings On Levophed for vasopressor support Critical Care Time (minutes): 35 Physical Exam Vital Signs: Vital Signs: Last Vital Signs Temp 99.0 F 01/05/25 09:58 Pulse 61 01/05/25 09:58 Resp 16 01/05/25 09:58 BP 102/50 L 01/05/25 09:58 Pulse Ox 94 01/05/25 09:58 O2 Del Method Mechanical Ventil ation 01/05/25 09:58 FiO2 21 01/05/25 09:58 BMI result Body Mass Index 35.3 Objective Data Labs 01/05/25 05:53 01/05/25 05:53 Labs: Laboratory Results - last 24 hr 01/04/25 01/04/25 01/04/25 15:44 16:09 18:25 WBC 7.4 RBC 4.42 L Hgb 14.1 Hct 39.8 L MCV 90.0 MCH 31.9 MCHC 35.4 RDW 13.2 Plt Count 250 MPV 9.9 Immature Gran % (Auto) 0.5 H Neut % (Auto) 60.0 Lymph % (Auto) 26.4 [place] % (Auto) 9.5 Eos % (Auto) 2.8 Baso % (Auto) 0.8 Lymph # (Auto) 2.0 [place] # (Auto) 0.7 Eos # (Auto) 0.2 Baso # (Auto) 0.1 Abs Immat Gran (auto) 0.04 H Absolute Neuts (auto) 4.4 Absolute Nucleated RBC 0.000 Nucleated RBC % (auto) 0.0 Hold Purple Top SEE NOTE Hold Blue Top SEE NOTE VBG pH VBG pCO2 VBG pO2 VBG HCO3 VBG O2 Saturation VBG Base Excess Sodium 137 137 Potassium 4.4 4.9 Chloride 103 106 Carbon Dioxide 19 L 16 L Anion Gap 19 20 BUN 17 H 18 H Creatinine 1.40 1.60 H Estim Creat Clear Calc 84.5 74.0 Estimated GFR 54 46 POC Glucose 123 H Random Glucose 114 94 Lactic Acid 2.9 H* Lactic Acid F/U @ 2Hr Calcium 9.0 8.2 L D Phosphorus 3.8 4.1 Magnesium 2.6 2.4 Total Bilirubin 0.4 0.2 AST 39 H 33 ALT 49 H 41 H Alkaline Phosphatase 80 72 Total Creatine Kinase 276 H Total Protein 7.7 6.9 Albumin 4.9 4.5 TSH 2.27 Hold Yellow Top See Note Urine Color Yellow Urine Appearance Clear Urine pH 5.5 Ur Specific [place] 1.010 Urine Protein Negative Urine Glucose (UA) Negative Urine Ketones Negative Urine Blood Negative Urine Nitrite Negative Ur Leukocyte Esterase Negative Salicylates < 5.0 L Urine Opiates Screen Not Detected Ur Buprenorphine Scrn Not Detected Ur Oxycodone Screen Not Detected Urine Methadone Screen Not Detected Urine Fentanyl Screen Not Detected Acetaminophen < 3 Ur Barbiturates Screen Not Detected Ur Phencyclidine Scrn Not Detected Ur Amphetamines Screen Not Detected U Benzodiazepines Scrn Not Detected Urine Cocaine Screen Not Detected U Marijuana (THC) Screen Not Detected Ethyl Alcohol 135 COVID-19 (ELIZA) Negative COVID-19 Clin Com See Note 01/04/25 01/04/25 01/04/25 18:26 18:35 22:55 WBC RBC Hgb Hct MCV MCH MCHC RDW Plt Count MPV Immature Gran % (Auto) Neut % (Auto) Lymph % (Auto) [place] % (Auto) Eos % (Auto) Baso % (Auto) Lymph # (Auto) [place] # (Auto) Eos # (Auto) Baso # (Auto) Abs Immat Gran (auto) Absolute Neuts (auto) Absolute Nucleated RBC Nucleated RBC % (auto) Hold Purple Top Hold Blue Top VBG pH 7.22 L VBG pCO2 37 VBG pO2 90 VBG HCO3 15 L VBG O2 Saturation 96.0 VBG Base Excess -11.1 Sodium 134 L Potassium 6.4 H* D Chloride 103 Carbon Dioxide 15 L Anion Gap 22 H BUN 18 H Creatinine 1.47 H Estim Creat Clear Calc 80.5 Estimated GFR 51 POC Glucose Random Glucose 107 Lactic Acid 4.7 H* 3.4 H* Lactic Acid F/U @ 2Hr Cancelled Calcium 8.4 Phosphorus Magnesium Total Bilirubin 0.3 AST 33 ALT 42 H Alkaline Phosphatase 75 Total Creatine Kinase Total Protein 7.4 Albumin 4.7 TSH Hold Yellow Top Urine Color Urine Appearance Urine pH Ur Specific [place] Urine Protein Urine Glucose (UA) Urine Ketones Urine Blood Urine Nitrite Ur Leukocyte Esterase Salicylates Urine Opiates Screen Ur Buprenorphine Scrn Ur Oxycodone Screen Urine Methadone Screen Urine Fentanyl Screen Acetaminophen Ur Barbiturates Screen Ur Phencyclidine Scrn Ur Amphetamines Screen U Benzodiazepines Scrn Urine Cocaine Screen U Marijuana (THC) Screen Ethyl Alcohol COVID-19 (ELIZA) COVID-19 [place] 01/04/25 01/05/25 01/05/25 23:16 02:31 05:53 WBC 14.5 H RBC 4.00 L Hgb 12.7 L Hct 37.3 L MCV 93.3 MCH 31.8 MCHC 34.0 RDW 13.4 Plt Count 231 MPV 9.9 Immature Gran % (Auto) 0.3 Neut % (Auto) 80.7 H Lymph % (Auto) 11.2 L [place] % (Auto) 7.3 Eos % (Auto) 0.3 Baso % (Auto) 0.2 Lymph # (Auto) 1.6 [place] # (Auto) 1.1 Eos # (Auto) 0.0 Baso # (Auto) 0.0 Abs Immat Gran (auto) 0.05 H Absolute Neuts (auto) 11.7 H Absolute Nucleated RBC 0.000 Nucleated RBC % (auto) 0.0 Hold Purple Top Hold Blue Top VBG pH VBG pCO2 VBG pO2 VBG HCO3 VBG O2 Saturation VBG Base Excess Sodium 141 Potassium 4.7 D Chloride 107 Carbon Dioxide 19 L Anion Gap 20 BUN 15 Creatinine 1.29 Estim Creat Clear Calc 86.6 Estimated GFR 59 POC Glucose 105 Random Glucose 122 H Lactic Acid 4.0 H* 3.2 H* Lactic Acid F/U @ 2Hr Calcium 8.6 Phosphorus 3.3 Magnesium 2.6 Total Bilirubin 0.4 AST 27 ALT 32 Alkaline Phosphatase 74 Total Creatine Kinase Total Protein 7.0 Albumin 4.3 TSH Hold Yellow Top Urine Color Urine Appearance Urine pH Ur Specific [place] Urine Protein Urine Glucose (UA) Urine Ketones Urine Blood Urine Nitrite Ur Leukocyte Esterase Salicylates Urine Opiates Screen Ur Buprenorphine Scrn Ur Oxycodone Screen Urine Methadone Screen Urine Fentanyl Screen Acetaminophen Ur Barbiturates Screen Ur Phencyclidine Scrn Ur Amphetamines Screen U Benzodiazepines Scrn Urine Cocaine Screen U Marijuana (THC) Screen Ethyl Alcohol COVID-19 (ELIZA) COVID-19 [place] 01/05/25 01/05/25 01/05/25 05:54 06:00 08:12 WBC RBC Hgb Hct MCV MCH MCHC RDW Plt Count MPV Immature Gran % (Auto) Neut % (Auto) Lymph % (Auto) [place] % (Auto) Eos % (Auto) Baso % (Auto) Lymph # (Auto) [place] # (Auto) Eos # (Auto) Baso # (Auto) Abs Immat Gran (auto) Absolute Neuts (auto) Absolute Nucleated RBC Nucleated RBC % (auto) Hold Purple Top Hold Blue Top VBG pH 7.39 VBG pCO2 40 VBG pO2 56 VBG HCO3 24 VBG O2 Saturation 84.0 VBG Base Excess -0.3 Sodium Potassium Chloride Carbon Dioxide Anion Gap BUN Creatinine Estim Creat Clear Calc Estimated GFR POC Glucose 132 H Random Glucose Lactic Acid Lactic Acid F/U @ 2Hr 3.0 H* Calcium Phosphorus Magnesium Total Bilirubin AST ALT Alkaline Phosphatase Total Creatine Kinase Total Protein Albumin TSH Hold Yellow Top Urine Color Urine Appearance Urine pH Ur Specific [place] Urine Protein Urine Glucose (UA) Urine Ketones Urine Blood Urine Nitrite Ur Leukocyte Esterase Salicylates Urine Opiates Screen Ur Buprenorphine Scrn Ur Oxycodone Screen Urine Methadone Screen Urine Fentanyl Screen Acetaminophen Ur Barbiturates Screen Ur Phencyclidine Scrn Ur Amphetamines Screen U Benzodiazepines Scrn Urine Cocaine Screen U Marijuana (THC) Screen Ethyl Alcohol COVID-19 (ELIZA) COVID-19 [employer] Com 01/05/25 10:03 WBC RBC Hgb Hct MCV MCH MCHC RDW Plt Count MPV Immature Gran % (Auto) Neut % (Auto) Lymph % (Auto) [place] % (Auto) Eos % (Auto) Baso % (Auto) Lymph # (Auto) [place] # (Auto) Eos # (Auto) Baso # (Auto) Abs Immat Gran (auto) Absolute Neuts (auto) Absolute Nucleated RBC Nucleated RBC % (auto) Hold Purple Top Hold Blue Top VBG pH VBG pCO2 VBG pO2 VBG HCO3 VBG O2 Saturation VBG Base Excess Sodium Potassium Chloride Carbon Dioxide Anion Gap BUN Creatinine Estim Creat Clear Calc Estimated GFR POC Glucose Random Glucose Lactic Acid 2.5 H* Lactic Acid F/U @ 2Hr Calcium Phosphorus Magnesium Total Bilirubin AST ALT Alkaline Phosphatase Total Creatine Kinase Total Protein Albumin TSH Hold Yellow Top Urine Color Urine Appearance Urine pH Ur Specific [place] Urine Protein Urine Glucose (UA) Urine Ketones Urine Blood Urine Nitrite Ur Leukocyte Esterase Salicylates Urine Opiates Screen Ur Buprenorphine Scrn Ur Oxycodone Screen Urine Methadone Screen Urine Fentanyl Screen Acetaminophen Ur Barbiturates Screen Ur Phencyclidine Scrn Ur Amphetamines Screen U Benzodiazepines Scrn Urine Cocaine Screen U Marijuana (THC) Screen Ethyl Alcohol COVID-19 (ELIZA) COVID-19 [employer] Com Progress Note: A&P Assessment and plan (1) Drug overdose, intentional: Status: Acute (2) Suicidal ideation: Status: Acute (3) Cardiogenic shock: Status: Acute (4) Acute encephalopathy: Status: Acute (5) Acute respiratory failure: Status: Acute Plan 49-year-old male presented to the ED with suicidal ideation ingesting multiple doses of metformin, olanzapine and ibuprofen, intubated for aspiration pneumonia on the ventilator since 01/04/2025 Acute encephalopathy: secondary to multiple drug overdose due to suicidal ideation on fentanyl for analgesia and propofol for sedation psych consult once extubated Cardiogenic shock: secondary to multiple medication intake on levophed for vasopressor support karyna monitor QT interval as he ingested multiple pills of olanzapine; 462 this morning Acute hypoxemic respirtory failure: secondary to aspiration pneumonia on ventilator support FiO2 21%, PEEP 5, TV 450, RR 20 ventilator management bundle GI: We will start tube feeds had given activated charcoal yesterday Renal: Acute kidney injury: Creatinine peaked to 1.6, down to 1.2 this morning.Unsure about baseline creatinine will closely monitor renal function, urine output Trending lactic acid levels to look for metformin associated lactic acidosis, currently lactate stable around 2-3. Infectious Disease: Has some leukocytosis secondary to aspiration We will start the patient on ceftriaxone Lines: left triple lumen catheter placed in ED Prophylaxis: heparin, pantoprazole Quality Stroke Does the patient have a stroke diagnosis?: No VTE Prior VTE?: No VTE Risk Level:: Medical - low VTE Device Contraindication: N/A - Device Ordered VTE Drug Contraindication: N/A - Med Ordered
[2025-01-05 11:45] LABS: Glucose, Whole Blood 125 mg/dL (60-115)
[2025-01-05 11:58] LABS: Anion Gap 15 (12-20); Blood Urea Nitrogen 12 mg/dL (9-16); Calcium 8.7 mg/dL (8.4-10.2); Carbon Dioxide 22 mmol/L (22-29); Chloride 111 mmol/L (96-108); Creatinine Clr Calc Pharmacy 86.0; Estimated Glomerular Filt Rate 59; Magnesium 2.8 mg/dL (1.6-2.6); Potassium 4.8 mmol/L (3.3-5.1); Sodium 143 mmol/L (135-145)
[2025-01-05 12:08] LABS: Reflex Lactate? Lactic Acid Added
--- NOTE | 2025-01-05 13:36 | ECG_ITS ---
Test Reason : QTc monitoring Blood Pressure : */* mmHG Vent. Rate : 59 BPM Atrial Rate : 59 BPM P-R Int : 162 ms QRS Dur : 96 ms QT Int : 470 ms P-R-T Axes : 48 -4 -10 degrees QTcB Int : 465 ms Sinus bradycardia RSR' or QR pattern in V1 suggests right ventricular conduction delay Minimal voltage criteria for LVH, may be normal variant ( R in aVL ) Nonspecific T wave abnormality Prolonged QT Abnormal ECG When compared with ECG of 05-Jan-2025 09:24, No significant change was found Referred By: Victor Hugo Lopez Electronically Signed By: MARGARETH SEWELL
[2025-01-05 13:45] LABS: ~Lactic Acid-LAB USE ONLY 2.1 mmol/L (0.5-2.0)
--- NOTE | 2025-01-05 13:52 | MHC.CM.PN ---
Pt intubated and unable to participate in CM assessment: Call placed to pt's partner, Keily: message left requesting callback for assessment information. No HCP on file. CM to follow
[2025-01-05 15:02] LABS: Reflex Lactate? 2 Y
[2025-01-05 15:37] LABS: ~Lactic Acid-LAB USE ONLY 1.7 mmol/L (0.5-2.0)
--- NOTE | 2025-01-05 17:27 | PC.NURSE ---
Assumed care of patient 0700. Patient is being follow by Poison Control based in [place] ([phone]). Plan for trending lactic acid levels Q4HR, EKGs to trend QT, QTc, QRS every 4 HRS. Lactic acids trending down 3.0 -->2.5-->2.1-->1.7. LFTS also decreasing. Poison control called to discuss labs and assessment data approx 11:45AM and 17:30PM. Per MD, no dialysis required for patient. See shift assessments. Patient provided full bed bath approx 13:00. High fall precautions in place, turned and repositioned Q2HR. Significant other Keily updated via phone once in morning and once in evening 5PM.
--- NOTE | 2025-01-05 17:28 | ECG_ITS ---
Test Reason : QTC MONITORING Blood Pressure : */* mmHG Vent. Rate : 56 BPM Atrial Rate : 56 BPM P-R Int : 164 ms QRS Dur : 100 ms QT Int : 488 ms P-R-T Axes : 54 1 -5 degrees QTcB Int : 470 ms Sinus bradycardia RSR' or QR pattern in V1 suggests right ventricular conduction delay Minimal voltage criteria for LVH, may be normal variant ( R in aVL ) Nonspecific T wave abnormality Prolonged QT Abnormal ECG When compared with ECG of 05-Jan-2025 13:41, No significant change was found Referred By: Victor Hugo Lopez Electronically Signed By: MARGARETH SEWELL
[2025-01-05 17:57] LABS: Glucose, Whole Blood 101 mg/dL (60-115)
[2025-01-05] MEDS: fentaNYL citrate/NS 1,000 MCG/100 ML PLAST..BAG 5 MCG IVCONT (19:45)
[2025-01-05 23:41] LABS: Glucose, Whole Blood 104 mg/dL (60-115)
[2025-01-06] VITALS (37 sets, daily range): BP systolic 91–130; BP diastolic 50–79; PULSE 54–85; RESP 17–19; TEMP 5–38.3; O2SAT 2–96; BMI 33.1
--- NOTE | 2025-01-06 | ECG_ITS ---
Test Reason : QTC check Blood Pressure : */* mmHG Vent. Rate : 59 BPM Atrial Rate : 59 BPM P-R Int : 160 ms QRS Dur : 98 ms QT Int : 464 ms P-R-T Axes : 64 7 -2 degrees QTcB Int : 459 ms Sinus bradycardia RSR' or QR pattern in V1 suggests right ventricular conduction delay Borderline ECG When compared with ECG of 05-Jan-2025 17:28, No significant change was found Referred By: Lyn Avelar Electronically Signed By: MARGARETH SEWELL
[2025-01-06] MEDS: Chlorhexidine Gluc Oral Rinse 15 ML MOUTHWASH BUCCAL ×3 (01:42→17:24)
[2025-01-06 04:43] LABS: VBG HCO3 27 mmol/L (22-26); VBG O2 % Saturation 67.0 %
[2025-01-06 05:01] LABS: MANUAL DIFF FLAG NO
[2025-01-06 05:02] LABS: Venous Blood Gas Refer to POC result
[2025-01-06 05:02] LABS: Hematocrit 38.1 % (42.0-52.0); Hemoglobin 12.7 g/dl (14.0-18.0); Imm Gran Abs Auto 0.03 X10*3/uL (0.00-0.03); Imm Gran Pct Auto 0.4 % (0.0-0.4); Lymphocytes Absolute Auto 1.5 X10*3/uL (1.2-4.9); Mean Corpuscular HGB Conc 33.3 g/dl (31.0-36.0); Mean Corpuscular Hemoglobin 32.2 pg (27.0-33.0); Mean Corpuscular Volume 96.7 fL (80.0-98.0); NRBC Abs Auto 0.000 X10*3/uL (0.0-0.012); NRBC Pct Auto 0.0 /100WBC (0.0-0.2); Platelet Count 194 X10*3/uL (160-400); Red Blood Count 3.94 X10*6/uL (4.60-5.80); White Blood Count 8.0 X10*3/uL (4.8-10.8)
[2025-01-06 05:20] LABS: Alanine Aminotransferase 32 U/L (0-40); Albumin Level 4.0 g/dL (3.5-5.0); Alkaline Phosphatase 75 U/L (39-117); Anion Gap 13 (12-20); Aspartate Amino Transferase 23 U/L (5-37); Blood Urea Nitrogen 13 mg/dL (9-16); Calcium 8.4 mg/dL (8.4-10.2); Carbon Dioxide 24 mmol/L (22-29); Chloride 112 mmol/L (96-108); Creatinine Clr Calc Pharmacy 79.8; Estimated Glomerular Filt Rate 54; Magnesium 2.6 mg/dL (1.6-2.6); Potassium 4.3 mmol/L (3.3-5.1); Sodium 145 mmol/L (135-145); Total Protein 6.8 g/dL (6.5-8.0)
--- NOTE | 2025-01-06 05:22 | PC.NURSE ---
Patient remains intubated and sedated, continues to require high dose of sedatives along with bilateral wrist restraints d/t agitation upon awakening and attempts to grab tubes/lines. Patient does not follow any commands and is not redirectable. Vent setting was changed to ACVC+. Patient remains hemodynamically stable and shows no sign of respiratory distress.
--- NOTE | 2025-01-06 08:44 | PM.CCPN ---
Subjective Subjective Date of Service: 01/06/25 Critical Care Time (minutes): 60 Physical Exam Vital Signs: Vital Signs: Last Vital Signs Temp 100.4 F 01/06/25 07:00 Pulse 81 01/06/25 07:00 Resp 18 01/06/25 07:00 BP 124/76 01/06/25 07:00 Pulse Ox 90 L 01/06/25 07:48 O2 Del Method Mechanical Ventil ation 01/06/25 07:00 FiO2 25 01/06/25 07:48 BMI result Body Mass Index 33.1 Const: Other: intubated, sedated General: comfortable, no acute distress and well developed HEENT: Head: Yes normal to inspection, Yes normocephalic and Yes atraumatic Eyes: General: appearance normal, both eyes and all related structures Neck: Neck: Yes normal visual inspection, Yes full ROM, Yes no meningeal signs, Yes trachea midline and Yes supple Chest: Chest palpation & inspection: normal inspection of the chest Resp: Other: no appreciable overt rales, rhonchi, wheezing Effort & Inspection: normal respiratory effort Cardio: Rate: regular rate Rhythm: regular rhythm GI: Inspection: Yes normal to inspection, No Abdominal wall edema and No distended Palpation (GI): Soft to palpation, not firm, nontender, no guarding and not rigid Skin: General skin exam: no rashes or lesions noted Neuro: General: tone normal and no meningeal signs Extrem: General: Yes normal to inspection, Yes full ROM, Yes capillary refill normal and Yes no clubbing, cyanosis or edema Psych: Other: unable to assess Objective Data Labs 01/06/25 04:34 01/06/25 04:34 Labs: Laboratory Results - last 24 hr 01/05/25 01/05/25 01/05/25 05:53 08:12 10:03 WBC RBC Hgb Hct MCV MCH MCHC RDW Plt Count MPV Immature Gran % (Auto) Neut % (Auto) Lymph % (Auto) [place] % (Auto) Eos % (Auto) Baso % (Auto) Lymph # (Auto) [place] # (Auto) Eos # (Auto) Baso # (Auto) Abs Immat Gran (auto) Absolute Neuts (auto) Absolute Nucleated RBC Nucleated RBC % (auto) VBG pH VBG pCO2 VBG pO2 VBG HCO3 VBG O2 Saturation VBG Base Excess Sodium Potassium Chloride Carbon Dioxide Anion Gap BUN Creatinine Estim Creat Clear Calc Estimated GFR POC Glucose Random Glucose Lactic Acid 2.5 H* Lactic Acid F/U @ 2Hr 3.0 H* Lactic Acid F/U @ 4Hr Calcium Phosphorus Magnesium Total Bilirubin AST ALT 32 Alkaline Phosphatase Total Protein Albumin 01/05/25 01/05/25 01/05/25 11:34 11:39 12:56 WBC RBC Hgb Hct MCV MCH MCHC RDW Plt Count MPV Immature Gran % (Auto) Neut % (Auto) Lymph % (Auto) [place] % (Auto) Eos % (Auto) Baso % (Auto) Lymph # (Auto) [place] # (Auto) Eos # (Auto) Baso # (Auto) Abs Immat Gran (auto) Absolute Neuts (auto) Absolute Nucleated RBC Nucleated RBC % (auto) VBG pH VBG pCO2 VBG pO2 VBG HCO3 VBG O2 Saturation VBG Base Excess Sodium 143 Potassium 4.8 Chloride 111 H Carbon Dioxide 22 Anion Gap 15 BUN 12 Creatinine 1.30 Estim Creat Clear Calc 86.0 Estimated GFR 59 POC Glucose 125 H Random Glucose 119 H Lactic Acid Lactic Acid F/U @ 2Hr 2.1 H* Lactic Acid F/U @ 4Hr Calcium 8.7 Phosphorus 3.1 Magnesium 2.8 H Total Bilirubin AST ALT Alkaline Phosphatase Total Protein Albumin 01/05/25 01/05/25 01/05/25 15:18 17:53 23:37 WBC RBC Hgb Hct MCV MCH MCHC RDW Plt Count MPV Immature Gran % (Auto) Neut % (Auto) Lymph % (Auto) [place] % (Auto) Eos % (Auto) Baso % (Auto) Lymph # (Auto) [place] # (Auto) Eos # (Auto) Baso # (Auto) Abs Immat Gran (auto) Absolute Neuts (auto) Absolute Nucleated RBC Nucleated RBC % (auto) VBG pH VBG pCO2 VBG pO2 VBG HCO3 VBG O2 Saturation VBG Base Excess Sodium Potassium Chloride Carbon Dioxide Anion Gap BUN Creatinine Estim Creat Clear Calc Estimated GFR POC Glucose 101 104 Random Glucose Lactic Acid Lactic Acid F/U @ 2Hr Lactic Acid F/U @ 4Hr 1.7 Calcium Phosphorus Magnesium Total Bilirubin AST ALT Alkaline Phosphatase Total Protein Albumin 01/06/25 01/06/25 04:34 04:39 WBC 8.0 RBC 3.94 L Hgb 12.7 L Hct 38.1 L MCV 96.7 MCH 32.2 MCHC 33.3 RDW 13.9 Plt Count 194 MPV 10.3 Immature Gran % (Auto) 0.4 Neut % (Auto) 68.3 Lymph % (Auto) 19.3 L [place] % (Auto) 8.6 Eos % (Auto) 2.9 Baso % (Auto) 0.5 Lymph # (Auto) 1.5 [place] # (Auto) 0.7 Eos # (Auto) 0.2 Baso # (Auto) 0.0 Abs Immat Gran (auto) 0.03 Absolute Neuts (auto) 5.5 Absolute Nucleated RBC 0.000 Nucleated RBC % (auto) 0.0 VBG pH 7.37 VBG pCO2 46 VBG pO2 43 VBG HCO3 27 H VBG O2 Saturation 67.0 VBG Base Excess 1.8 Sodium 145 Potassium 4.3 Chloride 112 H Carbon Dioxide 24 Anion Gap 13 BUN 13 Creatinine 1.40 Estim Creat Clear Calc 79.8 Estimated GFR 54 POC Glucose Random Glucose 102 Lactic Acid Lactic Acid F/U @ 2Hr Lactic Acid F/U @ 4Hr Calcium 8.4 Phosphorus 2.8 Magnesium 2.6 Total Bilirubin 0.2 AST 23 ALT 32 Alkaline Phosphatase 75 Total Protein 6.8 Albumin 4.0 Progress Note: A&P Assessment and plan (1) Suicidal ideation: Status: Acute (2) Drug overdose, intentional: Status: Acute Plan Patient is a 49 Y M presenting to ED on 01/04 w/ suicidal ideation, reportedly ingested olanzapine, metformin, and ibuprofen; ED course c/b aspiration, acute hypoxic respiratory failure, intubated 01/04 N: intubated, sedated w/ propofol gtt, fentanyl gtt, wean as tolerated CV: hypotension, norepinephrine gtt, wean as tolerated; to monitor QTc in setting of olanzapine ingestion R: acute hypoxic respiratory failure, intubated 01/04, wean as tolerated GI: no acute issues : acute renal insufficiency, to monitor renal indices H: no acute issues; chemical DVT prophylaxis ID: no overt stigmata of infection, to monitor E: to monitor hypo-/hyper-glycemia P: psychiatric?hold, consult when appropriate S: to contact next-of-kin/HCP Quality Stroke Does the patient have a stroke diagnosis?: No VTE Prior VTE?: No VTE Risk Level:: Medical - moderate - high VTE Device Contraindication: N/A - Device Ordered VTE Drug Contraindication: N/A - Med Ordered
--- NOTE | 2025-01-06 09:38 | MHC.CLN ---
PT IS INTUBATED AND SEDATED CURRENTLY NPO IF TF NEEDED; RECOMMEND GLUCERNA 1.2 AT MAX GOAL RATE 35ML/HR WITH 240ML FREE WATER FLUSHES Q 6 HRS TO PROVIDE 1008KCALS (1995KCALS WITH SEDATION; 23KCALS/KG), 50G PROTEIN, 1636ML TOTAL WATER FROM FORMULA AND FLUSHES (19ML/KG) MONITOR TOLERANCE AND LYTES FOLLOWING FOR DIET ADVANCEMENT SEE FULL ASSESSMENT
[2025-01-06 12:25] LABS: Glucose, Whole Blood 96 mg/dL (60-115)
[2025-01-06] MEDS: fentaNYL citrate/NS 1,000 MCG/100 ML PLAST..BAG 7.5 MCG IVCONT (14:49)
--- NOTE | 2025-01-06 15:06 | MHC.CM.PN ---
EMR REVIEWED. PT REMAINS ON VENTILATORY SUPPORT IN ICU. CM UNABLE TO REACH S/O ALBERT FOR INTAKE. CM WILL CONTINUE TO ATTEMPT TO REACH/FOLLOW.
[2025-01-06 18:21] LABS: Glucose, Whole Blood 84 mg/dL (60-115)
--- NOTE | 2025-01-06 19:10 | PC.NURSE ---
patient sedated and vented, attempted to decrease sedation, but became very restless and not following commands, MD aware and resedated, was placed on PVS very briefly, tolerating vent well on current sedation dose, see MAR and vent assessment for full details, OG tube to LWS, draining light brown/eng fluid, Blanchard draining light yellow urine with noted sediment
[2025-01-06 20:53] LABS: Glucose, Whole Blood 84 mg/dL (60-115)
[2025-01-06 23:48] LABS: Glucose, Whole Blood 101 mg/dL (60-115)
[2025-01-07] VITALS (35 sets, daily range): BP systolic 89–153; BP diastolic 46–99; PULSE 48–84; RESP 16–28; TEMP 34.6–38.6; O2SAT 91–100; BMI 33.2
[2025-01-07] MEDS: Chlorhexidine Gluc Oral Rinse 15 ML MOUTHWASH BUCCAL (01:00)
[2025-01-07] MEDS: fentaNYL citrate/NS 1,000 MCG/100 ML PLAST..BAG 7.5 MCG IVCONT (03:42)
--- NOTE | 2025-01-07 04:27 | PM.EVENT ---
Documented by User: Lyn Avelar NP 01/07/25 04:28 Event Note Date of Service: 01/07/25 Event Note: Hypotension related to vent sedation, no evidence of septic shock Time Spent With Patient Time: Total time managing care of this patient today ____ minutes. Documented by User: Emmie Renteria MD 01/07/25 07:44 Event Note Date of Service: 01/07/25
[2025-01-07 05:24] LABS: VBG HCO3 27 mmol/L (22-26); VBG O2 % Saturation 70.0 %
[2025-01-07 05:41] LABS: MANUAL DIFF FLAG NO
[2025-01-07 05:42] LABS: Hematocrit 36.0 % (42.0-52.0); Hemoglobin 12.2 g/dl (14.0-18.0); Imm Gran Abs Auto 0.03 X10*3/uL (0.00-0.03); Imm Gran Pct Auto 0.4 % (0.0-0.4); Lymphocytes Absolute Auto 1.4 X10*3/uL (1.2-4.9); Mean Corpuscular HGB Conc 33.9 g/dl (31.0-36.0); Mean Corpuscular Hemoglobin 31.9 pg (27.0-33.0); Mean Corpuscular Volume 94.2 fL (80.0-98.0); NRBC Abs Auto 0.000 X10*3/uL (0.0-0.012); NRBC Pct Auto 0.0 /100WBC (0.0-0.2); Platelet Count 205 X10*3/uL (160-400); Red Blood Count 3.82 X10*6/uL (4.60-5.80); White Blood Count 7.1 X10*3/uL (4.8-10.8)
[2025-01-07 06:02] LABS: Albumin Level 3.9 g/dL (3.5-5.0); Anion Gap 15 (12-20); Blood Urea Nitrogen 12 mg/dL (9-16); Calcium 8.5 mg/dL (8.4-10.2); Carbon Dioxide 22 mmol/L (22-29); Chloride 109 mmol/L (96-108); Creatinine Clr Calc Pharmacy 76.2; Estimated Glomerular Filt Rate 53; Magnesium 2.4 mg/dL (1.6-2.6); Potassium 4.1 mmol/L (3.3-5.1); Sodium 142 mmol/L (135-145)
[2025-01-07 06:15] LABS: Venous Blood Gas Refer to POC result
[2025-01-07 06:18] LABS: Glucose, Whole Blood 104 mg/dL (60-115)
--- NOTE | 2025-01-07 06:34 | PC.NURSE ---
Assumed care of patient at 1900. Patient intubated and sedated.Patient at 0400 had blood pressure of 93/47. WELDING MACHINE ASSEMBLER notified, propofol lowered, see JUN. Patient at 0453 had a blood pressure of 89/46. WELDING MACHINE ASSEMBLER notified, propofol and fentanyl dose adjusted see JUN. Levophed drip started. After starting levophed drip patient heart rate lowered to 50s. WELDING MACHINE ASSEMBLER notified no further orders placed. Blanchard draining dark yellow urine. Patient appears not to be in respiratory distress.
--- NOTE | 2025-01-07 07:58 | P.PNCC_ITS ---
Subjective Subjective Date of Service: 01/07/25 Interval History: no significant overnight events Critical Care Time (minutes): 60 Physical Exam 2 Vital Signs: Vital Signs: Last Vital Signs Temp 99.9 F 01/07/25 07:00 Pulse 50 01/07/25 07:00 Resp 18 01/07/25 07:00 BP 115/70 01/07/25 07:00 Pulse Ox 100 01/07/25 07:54 O2 Del Method Mechanical Ventil ation 01/07/25 07:00 FiO2 30 01/07/25 07:54 BMI result Body Mass Index 33.2 Const: Other: intubated General: cooperative, healthy appearing, comfortable, no acute distress, well developed, alert, awake and Physically active HEENT: Head: Yes normal to inspection, Yes normocephalic and Yes atraumatic Eyes: General: appearance normal, both eyes and all related structures Neck: Neck: Yes normal visual inspection, Yes full ROM, Yes no meningeal signs, Yes trachea midline and Yes supple Chest: Chest palpation & inspection: normal inspection of the chest Resp: Other: no appreciable overt rales, rhonchi, wheezing Effort & Inspection: normal respiratory effort Cardio: Rate: regular rate Rhythm: regular rhythm GI: Inspection: Yes normal to inspection, No Abdominal wall edema and No distended Palpation (GI): Soft to palpation, not firm, nontender, no guarding and not rigid Skin: General skin exam: no rashes or lesions noted Neuro: General: tone normal, moves all extremities, no meningeal signs and no focal motor deficits Extrem: General: Yes normal to inspection, Yes full ROM, Yes capillary refill normal and Yes no clubbing, cyanosis or edema Psych: Other: calm, cooperative Objective Data Labs 01/07/25 05:04 01/07/25 05:04 Labs: Laboratory Results - last 24 hr 01/06/25 01/06/25 01/06/25 12:22 18:15 20:45 WBC RBC Hgb Hct MCV MCH MCHC RDW Plt Count MPV Immature Gran % (Auto) Neut % (Auto) Lymph % (Auto) Nicholas % (Auto) Eos % (Auto) Baso % (Auto) Lymph # (Auto) [place] # (Auto) Eos # (Auto) Baso # (Auto) Abs Immat Gran (auto) Absolute Neuts (auto) Absolute Nucleated RBC Nucleated RBC % (auto) VBG pH VBG pCO2 VBG pO2 VBG HCO3 VBG O2 Saturation VBG Base Excess Sodium Potassium Chloride Carbon Dioxide Anion Gap BUN Creatinine Estim Creat Clear Calc Estimated GFR POC Glucose 96 84 84 Random Glucose Lactic Acid Calcium Phosphorus Magnesium Albumin 01/06/25 01/06/25 01/07/25 21:30 23:44 05:04 WBC 7.1 RBC 3.82 L Hgb 12.2 L Hct 36.0 L MCV 94.2 MCH 31.9 MCHC 33.9 RDW 13.6 Plt Count 205 MPV 10.2 Immature Gran % (Auto) 0.4 Neut % (Auto) 66.0 Lymph % (Auto) 19.2 L [place] % (Auto) 9.6 Eos % (Auto) 4.2 H Baso % (Auto) 0.6 Lymph # (Auto) 1.4 Nicholas # (Auto) 0.7 Eos # (Auto) 0.3 Baso # (Auto) 0.0 Abs Immat Gran (auto) 0.03 Absolute Neuts (auto) 4.7 Absolute Nucleated RBC 0.000 Nucleated RBC % (auto) 0.0 VBG pH VBG pCO2 VBG pO2 VBG HCO3 VBG O2 Saturation VBG Base Excess Sodium 142 Potassium 4.1 Chloride 109 H Carbon Dioxide 22 Anion Gap 15 BUN 12 Creatinine 1.42 H Estim Creat Clear Calc 76.2 Estimated GFR 53 POC Glucose 101 Random Glucose 99 Lactic Acid 0.8 Calcium 8.5 Phosphorus 4.0 Magnesium 2.4 Albumin 3.9 01/07/25 01/07/25 05:20 06:14 WBC RBC Hgb Hct MCV MCH MCHC RDW Plt Count MPV Immature Gran % (Auto) Neut % (Auto) Lymph % (Auto) Nicholas % (Auto) Eos % (Auto) Baso % (Auto) Lymph # (Auto) Nicholas # (Auto) Eos # (Auto) Baso # (Auto) Abs Immat Gran (auto) Absolute Neuts (auto) Absolute Nucleated RBC Nucleated RBC % (auto) VBG pH 7.38 VBG pCO2 45 VBG pO2 44 VBG HCO3 27 H VBG O2 Saturation 70.0 VBG Base Excess 1.7 Sodium Potassium Chloride Carbon Dioxide Anion Gap BUN Creatinine Estim Creat Clear Calc Estimated GFR POC Glucose 104 Random Glucose Lactic Acid Calcium Phosphorus Magnesium Albumin Progress Note: A&P Assessment and plan (1) Suicidal ideation: Status: Acute (2) Drug overdose, intentional: Status: Acute Plan Patient is a 49 Y M presenting to ED on 01/04 w/ suicidal ideation, reportedly ingested olanzapine, metformin, and ibuprofen; ED course c/b aspiration, acute hypoxic respiratory failure, intubated 01/04 N: intubated, sedated w/ propofol gtt, fentanyl gtt, wean as tolerated CV: hypotension, norepinephrine gtt, wean as tolerated; to monitor QTc in setting of olanzapine ingestion R: acute hypoxic respiratory failure, intubated 01/04, wean as tolerated GI: no acute issues : acute renal insufficiency, to monitor renal indices H: no acute issues; chemical DVT prophylaxis ID: no overt stigmata of infection, to monitor E: to monitor hypo-/hyper-glycemia P: psychiatric?hold, consult when appropriate S: daily updates given to partner Quality Stroke Does the patient have a stroke diagnosis?: No VTE Prior VTE?: No VTE Risk Level:: Medical - moderate - high VTE Device Contraindication: N/A - Device Ordered VTE Drug Contraindication: N/A - Med Ordered
--- NOTE | 2025-01-07 08:00 | ECG_ITS ---
Test Reason : qtc check Blood Pressure : */* mmHG Vent. Rate : 79 BPM Atrial Rate : 79 BPM P-R Int : 162 ms QRS Dur : 94 ms QT Int : 392 ms P-R-T Axes : 53 -1 -6 degrees QTcB Int : 449 ms Normal sinus rhythm Minimal voltage criteria for LVH, may be normal variant ( R in aVL ) Borderline ECG When compared with ECG of 06-Jan-2025 21:28, No significant change was found Referred By: Emmie Renteria Electronically Signed By: MARGARETH SEWELL
--- NOTE | 2025-01-07 09:10 | MHC.CLN ---
F/U PT EXTUBATED THIS AM CURRENTLY NPO-DAY 3 IF DIET TO ADVANCE, RECOMMEND 2000DM DIET SKIN: REDNESS NOTED FOLLOWING FOR DIET ADVANCEMENT
[2025-01-07 11:29] LABS: Glucose, Whole Blood 101 mg/dL (60-115)
--- NOTE | 2025-01-07 12:02 | MHC.CARE ---
Pt meets the criteria for IPLOC secondary to a suicide attempt via intentional overdose. ICU provider in agreement. Section 12a in chart.
--- NOTE | 2025-01-07 13:31 | MHC.CM.PN ---
Pt off of pressors: making clinical progress: pt will transfer to INPT psych once medically cleared - section [address] CM to follow
--- NOTE | 2025-01-07 17:40 | PC.NURSE ---
Assumed care at 0700 - pt intubated and sedated. Sedation vacation & PSV trial initiated - pt extubated at 0840 and titrated down from NC to RA. Patient calm, corporative, pleasant. Care team at bedside - section 12 initiated. L IJ TLC and [place]anchard removed - pt DTV by 2300. Pt OOB to chair with standby assistance, no complaints. High fall risk precautions in placed, 1:1 sitter at bedside. Plan for transfer to psych floor tomorrow (01/08/25) once medically cleared. Care ongoing.
[2025-01-08] VITALS (14 sets, daily range): BP systolic 109–166; BP diastolic 42–98; PULSE 58–79; RESP 12–25; TEMP 36.9–37.5; O2SAT 87–97; BMI 34.3
[2025-01-08 06:24] LABS: MANUAL DIFF FLAG NO
[2025-01-08 06:25] LABS: Hematocrit 35.1 % (42.0-52.0); Hemoglobin 12.6 g/dl (14.0-18.0); Imm Gran Abs Auto 0.04 X10*3/uL (0.00-0.03); Imm Gran Pct Auto 0.6 % (0.0-0.4); Lymphocytes Absolute Auto 1.1 X10*3/uL (1.2-4.9); Mean Corpuscular HGB Conc 35.9 g/dl (31.0-36.0); Mean Corpuscular Hemoglobin 32.6 pg (27.0-33.0); Mean Corpuscular Volume 90.7 fL (80.0-98.0); NRBC Abs Auto 0.000 X10*3/uL (0.0-0.012); NRBC Pct Auto 0.0 /100WBC (0.0-0.2); Platelet Count 190 X10*3/uL (160-400); Red Blood Count 3.87 X10*6/uL (4.60-5.80); White Blood Count 6.3 X10*3/uL (4.8-10.8)
--- NOTE | 2025-01-08 06:33 | PC.NURSE ---
Assumed care at 1900. Pt was extubated 01/07/25 and doing well. C/o sore/scratchy throat. Denies pain. PRICNE. 1:[address] for SI precautions. Pt denies SI ideation at this time. At approx 0245 pt de sat to 87% on room air. Pt placed on 1 LPM via NC. At approx 0445, pt was bladder scanned for 643. Pt offered urinal and was able to void 700 ml clear dark yellow urine. At 0500, pt sat 95% on 1LPM. Pt placed on room air, maintaing sat >90%. See MAR, flowsheets, and worklist for more details. Plan of care continues.
--- NOTE | 2025-01-08 06:34 | P.PNCC_ITS ---
Subjective Subjective Date of Service: 01/08/25 Interval History: no significant overnight events Critical Care Time (minutes): 60 Physical Exam 2 Vital Signs: Vital Signs: Last Vital Signs Temp 98.7 F 01/08/25 04:00 Pulse 67 01/08/25 06:00 Resp 17 01/08/25 06:00 BP 143/81 H 01/08/25 06:00 Pulse Ox 91 L 01/08/25 06:00 O2 Del Method Room Air 01/08/25 06:00 O2 Flow Rate 1 01/08/25 04:00 FiO2 30 01/07/25 16:00 BMI result Body Mass Index 34.3 Const: General: cooperative, healthy appearing, comfortable, no acute distress, well developed, alert, awake and Physically active O rientation/consciousness: patient oriented x3 HEENT: Head: Yes normal to inspection, Yes normocephalic and Yes atraumatic Eyes: General: appearance normal, both eyes and all related structures Neck: Neck: Yes normal visual inspection, Yes full ROM, Yes trachea midline and Yes supple Chest: Chest palpation & inspection: normal inspection of the chest Resp: Other: no appreciable overt rales, rhonchi, wheezing Effort & Inspection: normal respiratory effort Cardio: Rate: regular rate Rhythm: regular rhythm GI: Inspection: Yes normal to inspection, No Abdominal wall edema and No distended Palpation (GI): Soft to palpation, not firm, nontender, no guarding and not rigid Skin: General skin exam: no rashes or lesions noted Neuro: General: patient oriented x3, tone normal, moves all extremities and no focal motor deficits Extrem: General: Yes normal to inspection, Yes full ROM, Yes capillary refill normal and Yes no clubbing, cyanosis or edema Psych: Appearance: grossly normal Objective Data Labs 01/08/25 05:36 01/08/25 05:36 Labs: Laboratory Results - last 24 hr 01/07/25 01/08/25 11:17 05:36 WBC 6.3 RBC 3.87 L Hgb 12.6 L Hct 35.1 L MCV 90.7 MCH 32.6 MCHC 35.9 RDW 12.9 Plt Count 190 MPV 10.2 Immature Gran % (Auto) 0.6 H Neut % (Auto) 68.9 Lymph % (Auto) 16.6 L [place] % (Auto) 9.3 Eos % (Auto) 4.1 H Baso % (Auto) 0.5 Lymph # (Auto) 1.1 L [place] # (Auto) 0.6 Eos # (Auto) 0.3 Baso # (Auto) 0.0 Abs Immat Gran (auto) 0.04 H Absolute Neuts (auto) 4.4 Absolute Nucleated RBC 0.000 Nucleated RBC % (auto) 0.0 POC Glucose 101 Progress Note: A&P Assessment and plan (1) Suicidal ideation: Status: Acute (2) Drug overdose, intentional: Status: Acute Plan Patient is a 49 Y M presenting to ED on 01/04 w/ suicidal ideation, reportedly ingested olanzapine, metformin, and ibuprofen; ED course c/b aspiration, acute hypoxic respiratory failure, intubated 01/04 N: no acute issues CV: no acute issues; to monitor QTc in setting of olanzapine ingestion R: no acute issues; acute hypoxic respiratory failure, intubated 01/04, extubated 01/07 GI: no acute issues : acute renal insufficiency, improving, to monitor renal indices H: no acute issues; chemical DVT prophylaxis ID: empiric ceftriaxone in setting of c/f aspiration E: to monitor hypo-/hyper-glycemia P: to transfer inpatient psych, likely 01/08 S: daily updates given to partner Quality Stroke Does the patient have a stroke diagnosis?: No VTE Prior VTE?: No VTE Risk Level:: Medical - moderate - high VTE Device Contraindication: N/A - Device Ordered VTE Drug Contraindication: N/A - Med Ordered
[2025-01-08 06:42] LABS: Anion Gap 13 (12-20); Blood Urea Nitrogen 12 mg/dL (9-16); Calcium 8.9 mg/dL (8.4-10.2); Carbon Dioxide 25 mmol/L (22-29); Chloride 108 mmol/L (96-108); Creatinine Clr Calc Pharmacy 87.4; Estimated Glomerular Filt Rate > 60; Magnesium 2.2 mg/dL (1.6-2.6); Potassium 3.8 mmol/L (3.3-5.1); Sodium 142 mmol/L (135-145)
--- NOTE | 2025-01-08 07:13 | HO.SKINPHOTO ---
Location: Left forearm
--- NOTE | 2025-01-08 11:39 | P.DS_ITS ---
DS: Providers Provider Date of Service: 01/08/25 Date of admission: 01/04/25 17:57 Date of discharge: 01/08/25 Primary care physician: Terrie Trejo NP Consults: 01/07/25 08:04 Consult for Sitter Routine Reason for consultation: Suicidal Ideation Has provider been notified: No 01/07/25 10:39 Inpt CARE Team Crisis Consult Stat Comment: Reason for consultation: Suicidal Attempt Attending physician on discharge: Emmie Renteria DS: Transfer Hospital Acceptance Reason for Transfer: Inpatient Psychiatric Treatment [facility] of Facility: [facility] DS: Diagnosis Discharge Diagnosis (1) Suicidal ideation: Status: Acute (2) Drug overdose, intentional: Status: Acute DS: Summary Hospital Course Hospital Course: Mr. Devine is a 49 year-old male who presented to the emergency department on 01/04 following a suicidal attempt with olanzapine, metformin, and ibuprofen; Mr. Devine's ED coruse was complicated by persistent nausea/vomiting and concern for aspiration, for which he was intubated and started on empiric antibiotics; on 01/07, Mr. Devine was extubated and was evaluted by the CARE team, who recommended continued inpatient psychiatric care in setting of suicidal attempt Status at Discharge Overall status at discharge: patient is back to baseline Time Attestation Total time managing care of this patient today: 30 mintues. Discharge Coordination Time (in mins): 30 Quality: Safe Use of Opioids Does Pt have an Active Cancer Diagnosis on the Problem List?: No Quality: Stroke Does the patient have a stroke diagnosis?: No Physical Exam Vital Signs: Vital Signs: Last Vital Signs Temp 98.5 F 01/08/25 08:00 Pulse 58 01/08/25 10:00 Resp 15 01/08/25 10:00 BP 118/73 01/08/25 10:00 Pulse Ox 94 01/08/25 10:00 O2 Del Method Room Air 01/08/25 10:00 O2 Flow Rate 1 01/08/25 04:00 FiO2 30 01/07/25 16:00 BMI result Body Mass Index 34.3 Const: General: cooperative, healthy appearing, comfortable, no acute distress, well developed, alert, awake and Physically active Orientation/consciousness: patient oriented x3 HEENT: Head: Yes normal to inspection, Yes normocephalic and Yes atraumatic Eyes: General: appearance normal, both eyes and all related structures Neck: Neck: Yes normal visual inspection, Yes full ROM, Yes trachea midline and Yes supple Chest: Chest palpation & inspection: normal inspection of the chest Resp: Other: no appreciable overt rales, rhonchi, wheezing Effort & Inspection: normal respiratory effort Cardio: Rate: regular rate Rhythm: regular rhythm GI: Inspection: Yes normal to inspection, No Abdominal wall edema and No distended Palpation (GI): Soft to palpation, not firm, nontender, no guarding and not rigid Skin: General skin exam: no rashes or lesions noted Neuro: General: patient oriented x3, tone normal, moves all extremities and no focal motor deficits Extrem: General: Yes normal to inspection, Yes full ROM, Yes capillary refill normal and Yes no clubbing, cyanosis or edema DS: Data Data Completed and Pending Labs on day of discharge: Laboratory Results - last 24 hr 01/08/25 05:36 WBC 6.3 RBC 3.87 L Hgb 12.6 L Hct 35.1 L MCV 90.7 MCH 32.6 MCHC 35.9 RDW 12.9 Plt Count 190 MPV 10.2 Immature Gran % (Auto) 0.6 H Neut % (Auto) 68.9 Lymph % (Auto) 16.6 L [place] % (Auto) 9.3 Eos % (Auto) 4.1 H Baso % (Auto) 0.5 Lymph # (Auto) 1.1 L [place] # (Auto) 0.6 Eos # (Auto) 0.3 Baso # (Auto) 0.0 Abs Immat Gran (auto) 0.04 H Absolute Neuts (auto) 4.4 Absolute Nucleated RBC 0.000 Nucleated RBC % (auto) 0.0 Sodium 142 Potassium 3.8 Chloride 108 Carbon Dioxide 25 Anion Gap 13 BUN 12 Creatinine 1.26 Estim Creat Clear Calc 87.4 Estimated GFR > 60 Random Glucose 96 Calcium 8.9 Phosphorus 3.4 Magnesium 2.2 Discharge Plan Discharge Patient Disposition: Xfer Psychiatric Hosp Referrals: Terrie Trejo NP [Primary Care Provider, Internal Medicine] - 1 Week Discharge Medications: Continued cetirizine 10 mg tablet 10 mg PO DAILY famotidine 40 mg tablet 40 mg PO BID aspirin 81 mg tablet,delayed release (DR/EC) 81 mg PO DAILY citalopram 20 mg tablet 20 mg PO DAILY albuterol sulfate [Ventolin HFA] 90 mcg/actuation HFA aerosol inhaler 2 puff INHALATION QID PRN (Reason: wheezing) fluticasone propionate 50 mcg/actuation spray,suspension 1 spray intranasal BID fluticasone furoate 100 mcg/actuation blister with device 1 inh inhalation DAILY Discharge Orders: Discharge Order (Routine); Ordered 01/08/25 Ordered By: Emmie Renteria Activity on Discharge: As tolerated Stand Alone Forms: Patient Portal Discharge page Print Language: Norwegian Assessment: N: no acute issues CV: no acute issues; to monitor QTc in setting of olanzapine ingestion R: no acute issues; acute hypoxic respiratory failure, intubated 01/04, extubated 01/07; empiric ceftriaxone, switched to levofloxacin for possible aspiration GI: no acute issues; regular diet : acute renal insufficiency, improving, to monitor renal indices H: no acute issues; chemical DVT prophylaxis ID: empiric levofloxacin in setting of concern for aspiration E: to monitor hypo-/hyper-glycemia P: ongoing inpatient psychiatric care S: daily updates given to partner
--- NOTE | 2025-01-08 11:48 | HO.WOUND ---
Wound Consult: [place] 49 yr [place] [facility] [place] - See progress notes and H&P for detailed history. Wound consult placed for left forearm. Patient agreeable to assessment and photo documentation. Patient reported with IV site to left forearm, forearm was wrapped with rolled gauze to prevent patient from accessing IV site, subsequently IV hub created device related pressure injury to arm. Upon assessment today, IV site has been removed and area is resolving. Left forearm from nursing notes 01/08/25 AM Left forearm 01/08/25 approximately 11:30 am Etiology: stage 1 device related pressure injury hospital acquired. Measurements: 1x1x0 Wound Bed: intact linear nonblanching skin Drainage / Odor: none Edges: ? linear Cher wound: ? No Induration, Fluctuance or Warmth noted- bruising noted fading purple/blue/green/yellow Pain: mild pain with palpation Goals of Treatment: ? pressure is offloaded, leave open to air and monitor for changes Recommendations: 1. Left forearm : leave open to air, monitor for skin changes Re-consult wound care Nurse for wound deterioration or wound changes.
--- NOTE | 2025-01-08 11:54 | P.CDIM_ITS ---
PROVIDER RESPONSE TEXT: To clarify, the appropriate diagnosis supported by the clinical indicators: Acute renal failure with suspected ATN QUERY TEXT: PHYSICIAN'S DOCUMENTATION REQUEST Date of Query: 01/08/2025 11:45 AM EDT Patient Name: Adolfo Devine Admit Date: 01/04/2025 Dear Emmie Renteria MD, A review of the medical record indicates additional documentation may be needed. Please review below and update the documentation accordingly. Clinical Indicators: renal insufficiency is documented on 01/08/25: BUN 12, creatinine 1.26 (was 1.60 on 01/04/25), EGFR > 60 Please clarify which of the following accurately represents the patient's renal status: Acute renal failure Acute renal failure with suspected ATN Acute renal failure with other pathology (medullary, papillary, or cortical necrosis) Other (explain) Clinically unable to determine (explain) Thank you, Kasey Ryan RN Use of terms such as suspected, likely, concern for, or probable (associated with a specific diagnosis that is being evaluated, monitored, or treated as if it exists) are acceptable and can be coded in the inpatient setting, when documented at the time of discharge. Please use your independent medical judgment in providing your response. THIS QUERY IS PART OF THE PERMANENT MEDICAL RECORD
--- NOTE | 2025-01-08 12:10 | MHC.CM.PN ---
DP: PT IS MEDICALLY CLEARED TO DC TO PSYCHIATRIC UNIT.
== END 2025-01-08 13:07 | DRG 817 ==
LOC: HO.ED 16:53 → HO.EDOVER 18:20 → HO.ICU 19:29
PROVIDERS: Internal Medicine Critical Care Medicine; Physician Assistant Medical; Registered Nurse Community Health; Admitting Provider Internal Medicine Critical Care Medicine; Emergency Provider Emergency Medicine; PCP Nurse Practitioner Family; Visit Provider Internal Medicine Critical Care Medicine
DX: T43.592A Poisoning by other antipsychotics and neuroleptics, intentional self-harm, initial encounter (principal); J96.01 Acute respiratory failure with hypoxia; J69.0 Pneumonitis due to inhalation of food and vomit; N17.0 Acute kidney failure with tubular necrosis; R57.0 Cardiogenic shock; G92.8 Other toxic encephalopathy; F10.90 Alcohol use, unspecified, uncomplicated; T39.312A Poisoning by propionic acid derivatives, intentional self-harm, initial encounter; T38.3X2A Poisoning by insulin and oral hypoglycemic [antidiabetic] drugs, intentional self-harm, initial encounter; Y90.6 Blood alcohol level of 120-199 mg/100 ml; Z20.822 Contact with and (suspected) exposure to COVID-19; Z87.891 Personal history of nicotine dependence; Z79.82 Long term (current) use of aspirin; Z79.51 Long term (current) use of inhaled steroids; Z79.899 Other long term (current) drug therapy
CPT/HCPCS: 36415; 71045; 80048; 80053; 80143; 80179; 80307; 81003; 82040; 82550; 82803; 82947; 83605; 83735; 84100; 84443; 85025; 87635; 93005; 94002; 94003; 99285; J0131; J0696; J1644; J2250; J2470; J2704; J3010; J7120; S9485

== ENCOUNTER → 2025-01-04 15:37 | Outpatient (BNV) | payer OTHER, SELFPAY | PROVIDERS: Admitting Provider Internal Medicine Critical Care Medicine; Emergency Provider Emergency Medicine; Visit Provider Internal Medicine Cardiovascular Disease | DX: R94.31 Abnormal electrocardiogram [ECG] [EKG] (principal); R41.82 Altered mental status, unspecified; Z13.6 Encounter for screening for cardiovascular disorders | CPT/HCPCS: 93010 ==

== ENCOUNTER → 2025-01-04 15:37 | Outpatient (BNV) | payer OTHER, SELFPAY | PROVIDERS: Emergency Provider Emergency Medicine; Visit Provider Radiology Diagnostic Radiology | DX: R05.9 Cough, unspecified (principal); Z46.82 Encounter for fitting and adjustment of non-vascular catheter; J90 Pleural effusion, not elsewhere classified; J98.11 Atelectasis; Z95.9 Presence of cardiac and vascular implant and graft, unspecified | CPT/HCPCS: 71045 ==

== ENCOUNTER 2025-01-04 17:57 | Outpatient (BNV) | payer OTHER, SELFPAY | END 2025-01-07 08:00 | PROVIDERS: Admitting Provider Internal Medicine Critical Care Medicine; Emergency Provider Emergency Medicine; Visit Provider Internal Medicine | DX: Z13.6 Encounter for screening for cardiovascular disorders (principal) | CPT/HCPCS: 93010 ==

== ENCOUNTER 2025-01-04 17:57 | Outpatient (BNV) | payer OTHER, SELFPAY | END 2025-01-05 09:30 | PROVIDERS: Admitting Provider Internal Medicine Critical Care Medicine; Emergency Provider Emergency Medicine; Visit Provider Internal Medicine Cardiovascular Disease | DX: R94.31 Abnormal electrocardiogram [ECG] [EKG] (principal); Z13.6 Encounter for screening for cardiovascular disorders; R00.1 Bradycardia, unspecified | CPT/HCPCS: 93010 ==

== ENCOUNTER 2025-01-04 17:57 | Outpatient (BNV) | payer OTHER, SELFPAY | END 2025-01-06 21:28 | PROVIDERS: Admitting Provider Internal Medicine Critical Care Medicine; Emergency Provider Emergency Medicine; Visit Provider Internal Medicine | DX: R00.1 Bradycardia, unspecified (principal) | CPT/HCPCS: 93010 ==

== ENCOUNTER → 2025-01-04 17:57 | Outpatient (BNV) | payer OTHER, SELFPAY | PROVIDERS: Admitting Provider Internal Medicine Critical Care Medicine; Emergency Provider Emergency Medicine; Visit Provider Internal Medicine Critical Care Medicine | DX: R57.0 Cardiogenic shock (principal); T50.902A Poisoning by unspecified drugs, medicaments and biological substances, intentional self-harm, initial encounter; R45.851 Suicidal ideations; G93.40 Encephalopathy, unspecified; J96.00 Acute respiratory failure, unspecified whether with hypoxia or hypercapnia | CPT/HCPCS: 99291 ==

== ENCOUNTER 2025-01-08 13:26 | Inpatient (IN) | payer OTHER, SELFPAY ==
[2025-01-08 13:15] VITALS: BP 161/95; PULSE 91; RESP 19; TEMP 36.8; O2SAT 95
--- NOTE | 2025-01-08 13:40 | HO.PM.IMCN ---
History of Present Illness Data of Consult Service Date: 01/08/25 Primary Care Provider: Unknown Physician HPI Reason for consult: Medical management 49-year-old male with a past medical history of Asthma, Depression, anxiety, GERD, HTN, CAD, MELISSA intentional drug overdose, suicide attempt to with olanzapine metformin and ibuprofen. In the ED he had persistent nausea and vomiting with a concern for aspiration subsequently required intubation and antibiotics. On 01/07 he was extubated and stabilized and now transferred to inpatient psychiatric care. On exam he is alert and oriented x4, denies any shortness of breath or chest pain. Feels well. Reports that he has a history of anabolic steroid use, has not used recently. Has low testosterone, plans to follow up with endocrinology as an outpatient. As reveal mild iron deficiency anemia, renal insufficiency with a creatinine of 1.2. Most recent renal function within normal limits, magnesium within normal limits. Patient is seen by Cardiology in [facility]. He carries a diagnosis of hypertension but has not been on any medications. Review of Systems Review of Systems: Denies any shortness of breath, chest pain, dizziness, lightheadedness, abdominal pain or discomfort, nausea vomiting or diarrhea PMFSH Social History Household Members: Significant Other and Family Housing: House Do you presently have visiting nurse or other home services: No Comment: 1:1 sitter Patient Tobacco Use Status: Former Tobacco user Tobacco use type: Cigar Smoked in Last 30 Days: No e-Cigarette/Vaping Use: Never Used Patient Interested in Nicotine Replacement: No Patient Given Instructions on How to Stop Smoking: No (Pt declined) Second Hand Smoke Exposure: No Have you been hit, kicked, punched, or otherwise hurt by someone within the past year? If so, by whom?: No Do you feel safe in your current relationship?: Yes Is there a partner from a previous relationship who is making you feel unsafe now?: No Are you made to feel afraid or neglected: No Spiritual Healthcare Practices: No Rastafarian Healthcare Practices: No Cultural Healthcare Practices: No Advance Directives: No Advance Directives Information Provided: No Do you have a plan to hurt others: No Plan Recently lost weight without trying: No How much weight loss: Not applicable Eating poorly because of decreased appetite: Yes Nutrition screen score: 1 Poor oral hygiene: No service: No Sexual orientation: Straight/Heterosexual Meds Allergies Allergy/AdvReac Type Severity Reaction Status Date / Time No Known Allergies Allergy Unknown Verified 01/04/25 15:52 Active Medications: Current Medications Acetaminophen (Acetaminophen 325 Mg Tablet) 650 mg PO Q6H PRN PRN Reason: Headache/Pain, Scale 1-10 Al Hydroxide/Mg Hydroxide (Magnesium Hydrox/Alum Hydrox 30 Ml Oral.Susp) 30 ml PO Q6H PRN PRN Reason: Heartburn/Nausea Hydroxyzine HCl (Hydroxyzine Hcl 25 Mg Tablet) 25 mg PO Q6H PRN PRN Reason: mild anxiety Magnesium Hydroxide (Milk Of Magnesia 30 Ml Oral.Susp) 30 ml PO DAILY PRN PRN Reason: Constipation Nicotine (Nicotine 21 Mg Patch.Td24) 21 mg TRANSDERMA DAILY PRN PRN Reason: smoking cessation Nicotine Polacrilex (Nicotine Polacrilex 2 Mg Gum) 4 mg BUCCAL Q2H PRN PRN Reason: Nicotine Cravings Trazodone HCl (Trazodone Hcl 50 Mg Tablet) 50 mg PO BEDTIME MRX1 PRN PRN Reason: Insomnia Home Medications ?Medication ?Instructions ?Recorded ?Confirmed ?Last Taken ?Type albuterol sulfate 90 mcg/actuation 2 puff inhalation QID PRN wheezing 01/04/25 01/08/25 Unknown History aerosol inhaler (Ventolin HFA) aspirin 81 mg tablet,delayed 81 mg PO DAILY 01/04/25 01/08/25 Unknown History release cetirizine 10 mg tablet 10 mg PO DAILY 01/04/25 01/08/25 Unknown History citalopram 20 mg tablet 20 mg PO DAILY 01/04/25 01/08/25 Unknown History famotidine 40 mg tablet 40 mg PO BID 01/04/25 01/08/25 Unknown History fluticasone furoate 100 1 inh inhalation DAILY 01/04/25 01/08/25 Unknown History mcg/actuation blister powder for inhalation fluticasone propionate 50 1 spray intranasal BID 01/04/25 01/08/25 Unknown History mcg/actuation nasal spray,suspension Physical Exam Vital Signs and Narrative: CONST: Alert and oriented, in NAD. Well nourished HEENT: Normocephalic, atraumatic, MMM, Eyes clear, Neck supple RESP: Lungs clear, RRR even and regular HEART:,RRR, S1, S2. No murmur, no edema GI:Abdomen Soft NT, ND. + BS times four :Deferred SKIN: Warm dry and intact, no visible lesions or rashes. Dressing from central line to left side of neck, we will strike through drainage, no redness. NEURO:CN II-XII Intact bilaterally, Sensation intact. Speech clear PSYCH: Normal affect Assessment and Plan (1) CAD (coronary artery disease): Status: Acute Plan 49-year-old male with history of depression and anxiety, steroid use, EtOH abuse, renal insufficiency, GERD, coronary artery disease and hypertension presented to the ED after an intentional overdose, subsequently ended up requiring intubation and ICU stay now stable and transferred to inpatient psych for further care. Depression/Anxiety/History of steroid use/ETOH abuse Treatment per psych team. Suicide attempt/Status post acute hypoxic respiratory failure Requiring intubation and ICU stay Suspected due to toxic ingestion of medications and aspiration. Required intubation, extubated on 01/07 Asthma Continue inhaler substitution daily Rescue inhaler as needed Renal insufficiency Follow labs, avoid any nephrotoxins GERD Pepcid BID Coronary artery disease Continue ASA, check lipid panel, patient previously on atorvastatin 20 mg reports that he has not been taking this If cholesterol panel elevated recommend restarting. Elevated blood pressure readings If they continue read elevated recommend starting antihypertensive regime Low testosterone levels We will follow up with Endocrinology outpatient Thank you for allowing me to participate in the care of this patient. Will follow as needed, please notify medical provider with any changes in condition or concerns.
[2025-01-08 14:23] VITALS: BMI 35.6
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
[2025-01-08 20:00] VITALS: BP 151/92; PULSE 97; TEMP 37.1; O2SAT 97
[2025-01-08] MEDS: Magnesium Hydrox/Alum Hydrox 30 ML ORAL.SUSP PO (21:13)
[2025-01-08] MEDS: Fluticasone Propionate 100 MCG BLST.W.DEV 1 PUFF INHALE (21:18)
[2025-01-09 07:00] VITALS: BMI 35.9
[2025-01-09 08:00] VITALS: BP 143/83; PULSE 62; RESP 16; TEMP 36.4; O2SAT 97
[2025-01-09 08:31] LABS: Cholesterol 233 mg/dL (<200); HDL Cholesterol 44 mg/dL (>40); Triglycerides 238 mg/dL (<150)
[2025-01-09 08:37] LABS: Alanine Aminotransferase 64 U/L (0-40); Albumin Level 4.7 g/dL (3.5-5.0); Alkaline Phosphatase 80 U/L (39-117); Anion Gap 12 (12-20); Aspartate Amino Transferase 76 U/L (5-37); Blood Urea Nitrogen 18 mg/dL (9-16); Calcium 9.8 mg/dL (8.4-10.2); Carbon Dioxide 25 mmol/L (22-29); Chloride 109 mmol/L (96-108); Cholesterol 237 mg/dL (<200); Creatinine Clr Calc Pharmacy 94.3; Estimated Glomerular Filt Rate > 60; HDL Cholesterol 45 mg/dL (>40); Potassium 4.3 mmol/L (3.3-5.1); Sodium 142 mmol/L (135-145); Total Protein 7.7 g/dL (6.5-8.0); Triglycerides 240 mg/dL (<150)
[2025-01-09] MEDS: Aspirin Enteric Coated 81 MG TABLET.DR PO (09:04)
[2025-01-09] MEDS: Fluticasone Propionate 100 MCG BLST.W.DEV 1 PUFF INHALE ×2 (09:04→21:28)
--- NOTE | 2025-01-09 09:17 | HO.PSYADMNOT ---
HPI Date of Service: 01/09/25 Chief Complaint: si Sources of Information: patient interviewed, chart reviewed and crisis/core team assessment reviewed HPI Subjective Notes: Wallace Warning, Conditional Voluntary and 3 Day Narrative: Patient seen on 01/08 and again on 01/09 Patient is a 49-year-old male with history of CAD status post MIx3 JOSE, alcoholism, hypomanic episodes who presents following suicidal overdose. Patient reports that over the past months he was doing alright and would sometimes get a little snippy here and there. so his PCP started him on Celexa 10mg for a few months which seemed to keep him calmer; patient says he was still getting garcia, couldn't shut his brain at night and trouble sleeping. Pt reports at night, he would have constant worries about stuff i don't even need to worry about like did i water the plants...when should i do the trash to make sure there is enough room in the barrel...how long will it take me to do my chores in the morning... what do i have to do for work... 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 So PCP increased Celexa to 20mg, he thinks around around 2 months ago but is not sure.... Patient says that up until this past week I was fine and then i blew up...that day, i committed suicide..she [girlfriend] went to the store and when she got home i flipped out...i don't remember. Patient says he does not really remember anything, that it was a blackout and he has no idea what led up to his overdose or why he did it. He denies any recent SI at all (only 1 other bout of passive SI 20 years ago). Patient implores procedure writer to discuss this with his girlfriend who seems to be in charge of remembering everything for patient. Discussed gerber and patient is not really clear whether or not these things are true but he thinks he has had episodes of 4-5 days in a row, with lots of energy, barely any sleep, not tired...talking fast...getting a lot of stuff done...maybe spending more...maybe higher sex drive... Again implores procedure writer to ask his girlfriend the details -Alcohol: used to be every day 6-12 beers; now will drink about 6/day every few days -does not know if hx of trauma; saw a therapist as kid but no one told him why... -[phone] Keily Past Psychiatric History: 20 years had a moment of passive SI... trial of Celexa Medical Evaluation Reviewed: Yes [facility] Medical History (Updated 01/09/25 @ 17:57 by Blair Garland MD) Alcohol use disorder Mood disorder JOSE (generalized anxiety disorder) Substance History: cocaine: not for 2 years ago Alcohol: used to be every day 6-12 beers; now will drink about 6/day every few days Diagnostics Vital Signs (24Hr): Vital Signs - 24 hr 01/08/25 13:15 01/08/25 20:00 Temperature 98.2 F 98.8 F Pulse Rate 91 97 Respiratory Rate 19 Blood Pressure 161/95 H 151/92 H Pulse Oximetry 95 97 Oxygen Delivery Method Room Air Room Air BMI result Body Mass Index 35.6 Labs 01/09/25 07:47 Labs: Laboratory Results - last 48 hr 01/09/25 01/09/25 01/09/25 07:47 07:47 07:47 Sodium 142 Potassium 4.3 Chloride 109 H Carbon Dioxide 25 Anion Gap 12 BUN 18 H Creatinine 1.19 Estim Creat Clear Calc 94.3 Estimated GFR > 60 Random Glucose 110 Calcium 9.8 D Total Bilirubin 0.5 AST 76 H ALT 64 H Alkaline Phosphatase 80 Total Protein 7.7 Albumin 4.7 Triglycerides 238 H 240 H Cholesterol 233 H 237 H LDL Cholesterol, Calc 142 H HDL Cholesterol TSH 01/09/25 01/09/25 07:47 07:47 Sodium Potassium Chloride Carbon Dioxide Anion Gap BUN Creatinine Estim Creat Clear Calc Estimated GFR Random Glucose Calcium Total Bilirubin AST ALT Alkaline Phosphatase Total Protein Albumin Triglycerides Cholesterol LDL Cholesterol, Calc 144 H HDL Cholesterol 44 45 TSH 1.68 Meds/Allergies Meds Home Medications ?Medication ?Instructions ?Recorded ?Confirmed ?Type albuterol sulfate 90 mcg/actuation 2 puff inhalation QID PRN wheezing 01/04/25 01/08/25 History aerosol inhaler (Ventolin HFA) aspirin 81 mg tablet,delayed 81 mg PO DAILY 01/04/25 01/08/25 History release cetirizine 10 mg tablet 10 mg PO DAILY 01/04/25 01/08/25 History citalopram 20 mg tablet 20 mg PO DAILY 01/04/25 01/08/25 History famotidine 40 mg tablet 40 mg PO BID 01/04/25 01/08/25 History fluticasone furoate 100 1 inh inhalation DAILY 01/04/25 01/08/25 History mcg/actuation blister powder for inhalation fluticasone propionate 50 1 spray intranasal BID 01/04/25 01/08/25 History mcg/actuation nasal spray,suspension Allergies Allergies Allergy/AdvReac Type Severity Reaction Status Date / Time No Known Allergies Allergy Unknown Verified 01/04/25 15:52 Mental Status Exam Mental Status Exam Narrative: Pt is alert and oriented; behavior is cooperative, friendly and calm; patient is not in distress; dressed in casual attire with unkempt hair but adequate hygiene; mood is described as good and affect congruent; eye contact appropriate; Speech is normal rate, volume and prosody and not pressured; seems to have a lot of energy and is exuberantly thankful but overall no psychomotor agitation/retardation present; thought process is organized and goal directed though forgetful; Thought content is on getting treatment for whatever happened; otherwise pertinent to relevant topics and without any delusional content, paranoid ideations or grandiosity; denies any SI/HI. Denies AVH and there is no evidence of perceptual disturbance. Patients insight and judgment appear intact. Assessment & Plan Assessment & Plan (1) JOSE (generalized anxiety disorder): Status: Acute Code(s): F41.1 - Generalized anxiety disorder (2) Mood disorder: Status: Acute Code(s): F39 - Unspecified mood [affective] disorder (3) CAD (coronary artery disease): Status: Acute Code(s): I25.10 - Atherosclerotic heart disease of [place] coronary artery without angina pectoris (4) Alcohol use disorder: Status: Acute Code(s): F10.90 - Alcohol use, unspecified, uncomplicated Plan Patient is a 49-year-old male with history of CAD status post MIx3 JOSE, alcoholism, hypomanic episodes who presents following suicidal overdose. Patient reports that over the past months he was doing alright and would sometimes get a little snippy here and there. so his PCP started him on Celexa 10mg for a few months which seemed to keep him calmer; patient says he was still getting garcia, couldn't shut his brain at night and trouble sleeping. Pt reports at night, he would have constant worries about stuff i don't even need to worry about like did i water the plants...when should i do the trash to make sure there is enough room in the barrel...how long will it take me to do my chores in the morning... what do i have to do for work... 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 So PCP increased Celexa to 20mg, he thinks around around 2 months ago but is not sure.... Patient says that up until this past week I was fine and then i blew up...that day, i committed suicide..she [girlfriend] went to the store and when she got home i flipped out...i don't remember. Patient says he does not really remember anything, that it was a blackout and he has no idea what led up to his overdose or why he did it. He denies any recent SI at all (only 1 other bout of passive SI 20 years ago). Patient implores procedure writer to discuss this with his girlfriend who seems to be in charge of remembering everything for patient. Discussed gerber and patient is not really clear whether or not these things are true but he thinks he has had episodes of 4-5 days in a row, with lots of energy, barely any sleep, not tired...talking fast...getting a lot of stuff done...maybe spending more...maybe higher sex drive... Again implores procedure writer to ask his girlfriend the details -Alcohol: used to be every day 6-12 beers; now will drink about 6/day every few days -does not know if hx of trauma; saw a therapist as kid but no one told him why... -[phone] Keily Formulation/clinical reasoning: Currently it is not clear what caused SI. He says he was fine up until that day and has no recollection of what transpired other than he ended up in the hospital. Still not sure if patient is actually having manic episodes but he seems to think he might be. Need to find out if patient was drinking at the time as well. For now will diagnose with GED and a mood disorder and rule out bipolar disorder. Will not restart Celexa though from patient's story, it does not seem to have been a problem Plan: CV Q 15 minute checks No home medications at this time Will gather collateral from girlfriend Keily [phone] Keily Patient educated on: diagnosis, medication risk/benefits, substance abuse, therapeutic strategies and medical condition Informed Consent: understands Reason for continued inpatient stay Substantial Risk for: rapid decompensation Statement Statement: I have reviewed the history and physical and performed a pertinent examination on my patient. No changes have occurred unless specified. If the History and Physical was not performed prior to admission, the Hospitalist's service will be consulted for completing the admission physical. Time Spent With Patient Time: Total time managing care of this patient today ____ minutes.
[2025-01-09 09:21] LABS: Hemoglobin A1C 125.6864 umol/L; Total Hemoglobin (HGBA1C) 3600.4247 umol/L
[2025-01-09 20:00] VITALS: BP 138/85; PULSE 83; RESP 20; TEMP 36.7; O2SAT 96
[2025-01-10 08:00] VITALS: BP 119/68; PULSE 67; RESP 16; TEMP 36.8; O2SAT 97
[2025-01-10] MEDS: Fluticasone Propionate 100 MCG BLST.W.DEV 1 PUFF INHALE ×2 (08:45→20:46)
[2025-01-10] MEDS: Aspirin Enteric Coated 81 MG TABLET.DR PO (08:45)
[2025-01-10] MEDS: Throat Lozenge, Medicated LOZENGE 1 LOZENGE MUCOUS MEM ×2 (09:02→12:10)
--- NOTE | 2025-01-10 09:55 | P.PNPSI_ITS ---
Subjective Subjective Date of Service: 01/10/25 Reason For Visit: si Interim History: met with patient; discussed with team; discussed case with partner Spoke with patient's partner Keily who confirms patient's depressive and manic episodes. She reports that his dose of Celexa was increased about 2 weeks ago while patient was having a depressive episode where he had diminished interest in things, feeling excessively guilty, low energy, poor concentration, increased sleeping and psychomotor retardation. This depressive episode ended with patient becoming manic and for the past 3 weeks patient was not sleeping at all, talking incessantly, talking fast, hyperactive, highly irritable and saying mean things, starting and stopping projects and not finishing them, trying to clean but making a mess, increased sex drive, spending money on things that none of them needed... She says that she went to the store, came back and patient had empty bottles of Zyprexa, ibuprofen, metformin and Cymbalta; he was holding some pills in his hand and shove them in his mouth in front of her while saying that he feels he has lost everything, has nothing to live for and saying things like I'm done.. She does not remember any other history of manic episodes. Discussed medications, specifically lithium, risks/side effects Met with patient and explained the things Keily said. Patient was very grateful to have the details as he said he does not remember all that much about the past weeks and especially the day he overdosed, having no idea about the pill bottles at all. Discussed medication options and lithium going over risks/side effects which patient understood and said he wanted to try. Mental Status Exam Mental Status Exam Narrative: Pt is alert and oriented; behavior is cooperative, friendly and calm; patient is not in distress; dressed in casual attire with unkempt hair but adequate hygiene; mood is described as good and affect congruent; eye contact appropriate; Speech is normal rate, volume and prosody and not pressured; seems to have a lot of energy and is exuberantly thankful but overall no psychomotor agitation/retardation present; thought process is organized and goal directed though forgetful; Thought content is on getting treatment for whatever happened; otherwise pertinent to relevant topics and without any delusional content, paranoid ideations or grandiosity; denies any SI/HI. Denies AVH and there is no evidence of perceptual disturbance. Patients insight and judgment appear intact. Diagnostics Vital Signs (24Hr): Vital Signs - 24 hr 01/09/25 20:00 01/10/25 08:00 Temperature 98.1 F 98.2 F Pulse Rate 83 67 Respiratory Rate 20 16 Blood Pressure 138/85 119/68 Pulse Oximetry 96 97 Oxygen Delivery Method Room Air Room Air BMI result Body Mass Index 35.9 Labs 01/09/25 07:47 Labs: Laboratory Results - last 48 hr 01/09/25 01/09/25 01/09/25 07:47 07:47 07:47 Sodium 142 Potassium 4.3 Chloride 109 H Carbon Dioxide 25 Anion Gap 12 BUN 18 H Creatinine 1.19 Estim Creat Clear Calc 94.3 Estimated GFR > 60 Random Glucose 110 Estimat Average Glucose 105 Hemoglobin A1c % 5.3 Calcium 9.8 D Total Bilirubin 0.5 AST 76 H ALT 64 H Alkaline Phosphatase 80 Total Protein 7.7 Albumin 4.7 Triglycerides 238 H 240 H Cholesterol 233 H 237 H LDL Cholesterol, Calc 142 H HDL Cholesterol TSH 01/09/25 01/09/25 07:47 07:47 Sodium Potassium Chloride Carbon Dioxide Anion Gap BUN Creatinine Estim Creat Clear Calc Estimated GFR Random Glucose Estimat Average Glucose Hemoglobin A1c % Calcium Total Bilirubin AST ALT Alkaline Phosphatase Total Protein Albumin Triglycerides Cholesterol LDL Cholesterol, Calc 144 H HDL Cholesterol 44 45 TSH 1.68 Medications Medications Current Medications Acetaminophen (Acetaminophen 325 Mg Tablet) 650 mg PO Q6H PRN PRN Reason: Headache/Pain, Scale 1-10 Last Admin: 01/10/25 09:02 Dose: 650 mg Al Hydroxide/Mg Hydroxide (Magnesium Hydrox/Alum Hydrox 30 Ml Oral.Susp) 30 ml PO Q6H PRN PRN Reason: Heartburn/Nausea Last Admin: 01/08/25 21:13 Dose: 30 ml Albuterol Sulfate (Albuterol Sulfate 90 Mcg 8 Gm Inhaler) 2 puff INHALE QID PRN PRN Reason: Wheezing Aspirin (Aspirin Enteric Coated 81 Mg Tablet.) 81 mg PO DAILY [facility] Last Admin: 01/10/25 08:45 Dose: 81 mg Benzocaine (Throat Lozenge, Medicated Lozenge) 1 lozenge MUCOUS MEM Q2H PRN PRN Reason: Sore Throat Last Admin: 01/10/25 09:02 Dose: 1 lozenge Famotidine (Famotidine 20 Mg Tablet) 40 mg PO BID [facility] Last Admin: 01/10/25 08:45 Dose: 40 mg Fluticasone Propionate (Fluticasone Propionate 100 Mcg Blst.W.Dev) 1 puff INHALE RBID [facility] Last Admin: 01/10/25 08:45 Dose: 1 puff Fluticasone Propionate (Fluticasone Propionate Nasal 16 Gm [place]) 1 spray NOSTRIL-B BID [facility] Last Admin: 01/10/25 08:44 Dose: 1 spray Hydroxyzine HCl (Hydroxyzine Hcl 25 Mg Tablet) 25 mg PO Q6H PRN PRN Reason: mild anxiety Levofloxacin (Levofloxacin 500 Mg Tablet) 500 mg PO DAILY [facility] Stop: 01/10/25 10:29 Last Admin: 01/10/25 08:45 Dose: 500 mg Loratadine (Loratadine 10 Mg Tablet) 10 mg PO DAILY [facility] Last Admin: 01/10/25 08:45 Dose: 10 mg Magnesium Hydroxide (Milk Of Magnesia 30 Ml Oral.Susp) 30 ml PO DAILY PRN PRN Reason: Constipation Nicotine (Nicotine 21 Mg Patch.Td24) 21 mg TRANSDERMA DAILY PRN PRN Reason: smoking cessation Nicotine Polacrilex (Nicotine Polacrilex 2 Mg Gum) 4 mg BUCCAL Q2H PRN PRN Reason: Nicotine Cravings Trazodone HCl (Trazodone Hcl 50 Mg Tablet) 50 mg PO BEDTIME MRX1 PRN PRN Reason: Insomnia Last Admin: 01/09/25 21:29 Dose: 50 mg Allergies Allergies Allergy/AdvReac Type Severity Reaction Status Date / Time No Known Allergies Allergy Unknown Verified 01/04/25 15:52 Assessment & Plan Assessment & Plan (1) Bipolar I disorder: Status: Acute Code(s): F31.9 - Bipolar disorder, unspecified (2) JOSE (generalized anxiety disorder): Status: Acute Code(s): F41.1 - Generalized anxiety disorder (3) CAD (coronary artery disease): Status: Acute Code(s): I25.10 - Atherosclerotic heart disease of [place] coronary artery without angina pectoris (4) Alcohol use disorder: Status: Acute Code(s): F10.90 - Alcohol use, unspecified, uncomplicated Plan HPI: Patient is a 49-year-old male with history of CAD status post MIx3 JOSE, alcoholism, hypomanic episodes who presents following suicidal overdose which resulted in need for ICU admission. Patient reports that over the past months he was doing alright and would sometimes get a little snippy here and there. so his PCP started him on Celexa 10mg for a few months which seemed to keep him calmer; patient says he was still getting garcia, couldn't shut his brain at night and trouble sleeping. Pt reports at night, he would have constant worries about stuff i don't even need to worry about like did i water the plants...when should i do the trash to make sure there is enough room in the barrel...how long will it take me to do my chores in the morning... what do i have to do for work... 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 So PCP increased Celexa to 20mg, he thinks around around 2 months ago but is not sure.... Patient says that up until this past week I was fine and then i blew up...that day, i committed suicide..she [girlfriend] went to the store and when she got home i flipped out...i don't remember. Patient says he does not really remember anything, that it was a blackout and he has no idea what led up to his overdose or why he did it. He denies any recent SI at all (only 1 other bout of passive SI 20 years ago). Patient implores writer technical publications to discuss this with his girlfriend who seems to be in charge of remembering everything for patient. Discussed gerber and patient is not really clear whether or not these things are true but he thinks he has had episodes of 4-5 days in a row, with lots of energy, barely any sleep, not tired...talking fast...getting a lot of stuff done...maybe spending more...maybe higher sex drive... Again implores writer technical publications to ask his girlfriend the details -Alcohol: used to be every day 6-12 beers; now will drink about 6/day every few days -does not know if hx of trauma; saw a therapist as kid but no one told him why... -[phone] Keily Formulation/clinical reasoning: Currently it is not clear what caused SI. His attempt was serious, life- threatening and resulted in need for ICU admission. While he is presenting as stable, this stability is considered fragile. At at this point, it is unclear what happened that resulted in SA and pt requires inpt level of care to assess and treat; otherwise, he remains at risk for serious decompensation. Pt says he was fine up until that day and has no recollection of what transpired other than he ended up in the hospital. Still not sure if patient is actually having manic episodes but he seems to think he might be. Need to find out if patient was drinking at the time as well. For now will diagnose with GED and a mood disorder and rule out bipolar disorder. Will not restart Celexa though from patient's story, it does not seem to have been a problem Hospital course: 01/10 Spoke with patient's partner Keily who confirms patient's depressive and manic episodes. She reports that his dose of Celexa was increased about 2 weeks ago while patient was having a depressive episode where he had diminished interest in things, feeling excessively guilty, low energy, poor concentration, increased sleeping and psychomotor retardation. This depressive episode ended with patient becoming manic and for the past 3 weeks patient was not sleeping at all, talking incessantly, talking fast, hyperactive, highly irritable and saying mean things, starting and stopping projects and not finishing them, trying to clean but making a mess, increased sex drive, spending money on things that none of them needed... She says that she went to the store, came back and patient had empty bottles of Zyprexa, ibuprofen, metformin and Cymbalta; he was holding some pills in his hand and shove them in his mouth in front of her while saying that he feels he has lost everything, has nothing to live for and saying things like I'm done.. She does not remember any other history of manic episodes. Discussed medications, specifically lithium, risks/side effects Met with patient and explained the things Keily said. Patient was very grateful to have the details as he said he does not remember all that much about the past weeks and especially the day he overdosed, having no idea about the pill bottles at all. Discussed medication options and lithium going over risks/side effects which patient understood and said he wanted to try. -will consider medication for JOSE once mood is stabilized Plan: CV Q 15 minute checks Start lithium ER 600 mg q.h.s. Will gather collateral from girlfriend Keily [phone] Keily Patient educated on: diagnosis, medication risk/benefits and therapeutic strategies Informed Consent: understands Reason for continued inpatient stay Substantial Risk for: rapid decompensation Time Spent With Patient Time: Total time managing care of this patient today ____ minutes.
[2025-01-10] MEDS: guanFACINE HCl ER 1 MG TAB.ER.24H PO (15:18)
[2025-01-11 08:00] VITALS: BP 140/81; PULSE 68; RESP 16; TEMP 36.7; O2SAT 97
[2025-01-11] MEDS: Fluticasone Propionate 100 MCG BLST.W.DEV 1 PUFF INHALE ×2 (08:28→20:30)
[2025-01-11] MEDS: Aspirin Enteric Coated 81 MG TABLET.DR PO (08:28)
[2025-01-11] MEDS: guanFACINE HCl ER 1 MG TAB.ER.24H PO ×2 (08:29→20:30)
--- NOTE | 2025-01-11 08:50 | P.PNPSI_ITS ---
Subjective Subjective Date of Service: 01/11/25 Reason For Visit: si Interim History: met with patient; discussed with team; reviewed chart Patient reports that he is doing well, good mood. Says he had poor sleep last night, but not manic, not struggling with worries. Discussed medication regimen and patient agrees to intuniv to help with focus and daytime anxiety as well as bedtime anxiety. Incubator Tender also met with his partner Keily who feels that he is doing better Mental Status Exam Mental Status Exam Narrative: Pt is alert and oriented; behavior is cooperative, friendly and calm; patient is not in distress; dressed in casual attire with unkempt hair but adequate hygiene; mood is described as good and affect congruent; eye contact appropriate; Speech is normal rate, volume and prosody and not pressured; seems to have a lot of energy and is exuberantly thankful but overall no psychomotor agitation/retardation present; thought process is organized and goal directed though forgetful; Thought content is on getting treatment for whatever happened; otherwise pertinent to relevant topics and without any delusional content, paranoid ideations or grandiosity; denies any SI/HI. Denies AVH and there is no evidence of perceptual disturbance. Patients insight and judgment appear intact. Diagnostics Vital Signs (24Hr): Vital Signs - 24 hr 01/11/25 08:00 Temperature 98.1 F Pulse Rate 68 Respiratory Rate 16 Blood Pressure 140/81 H Pulse Oximetry 97 Oxygen Delivery Method Room Air BMI result Body Mass Index 35.9 Labs 01/09/25 07:47 Labs: Laboratory Results - last 48 hr 01/09/25 07:47 Estimat Average Glucose 105 Hemoglobin A1c % 5.3 TSH 1.68 Medications Medications Current Medications Acetaminophen (Acetaminophen 325 Mg Tablet) 650 mg PO Q6H PRN PRN Reason: Headache/Pain, Scale 1-10 Last Admin: 01/10/25 09:02 Dose: 650 mg Al Hydroxide/Mg Hydroxide (Magnesium Hydrox/Alum Hydrox 30 Ml Oral.Susp) 30 ml PO Q6H PRN PRN Reason: Heartburn/Nausea Last Admin: 01/08/25 21:13 Dose: 30 ml Albuterol Sulfate (Albuterol Sulfate 90 Mcg 8 Gm Inhaler) 2 puff INHALE QID PRN PRN Reason: Wheezing Aspirin (Aspirin Enteric Coated 81 Mg Tablet.) 81 mg PO DAILY [place] Last Admin: 01/11/25 08:28 Dose: 81 mg Benzocaine (Throat Lozenge, Medicated Lozenge) 1 lozenge MUCOUS MEM Q2H PRN PRN Reason: Sore Throat Last Admin: 01/10/25 12:10 Dose: 1 lozenge Famotidine (Famotidine 20 Mg Tablet) 40 mg PO BID REPLACED BY [facility] Last Admin: 01/11/25 08:29 Dose: 40 mg Fluticasone Propionate (Fluticasone Propionate 100 Mcg Blst.W.Dev) 1 puff INHALE RBID REPLACED BY [facility] Last Admin: 01/11/25 08:28 Dose: 1 puff Fluticasone Propionate (Fluticasone Propionate Nasal 16 Gm [place]) 1 spray NOSTRIL-B BID REPLACED BY [facility] Last Admin: 01/11/25 08:28 Dose: 1 spray Guanfacine HCl (Guanfacine Hcl Er 1 Mg Tab.Er.24h) 1 mg PO DAILY REPLACED BY [facility] Last Admin: 01/11/25 08:29 Dose: 1 mg Hydroxyzine HCl (Hydroxyzine Hcl 25 Mg Tablet) 25 mg PO Q6H PRN PRN Reason: mild anxiety [place] Carbonate ([place] Carbonate Er 300 Mg Tablet.Er) 600 mg PO BEDTIME REPLACED BY [facility] Last Admin: 01/10/25 20:47 Dose: 600 mg Loratadine (Loratadine 10 Mg Tablet) 10 mg PO DAILY REPLACED BY [facility] Last Admin: 01/11/25 08:29 Dose: 10 mg Magnesium Hydroxide (Milk Of Magnesia 30 Ml Oral.Susp) 30 ml PO DAILY PRN PRN Reason: Constipation Nicotine (Nicotine 21 Mg Patch.Td24) 21 mg TRANSDERMA DAILY PRN PRN Reason: smoking cessation Nicotine Polacrilex (Nicotine Polacrilex 2 Mg Gum) 4 mg BUCCAL Q2H PRN PRN Reason: Nicotine Cravings Trazodone HCl (Trazodone Hcl 50 Mg Tablet) 50 mg PO BEDTIME MRX1 PRN PRN Reason: Insomnia Last Admin: 01/10/25 20:47 Dose: 50 mg Allergies Allergies Allergy/AdvReac Type Severity Reaction Status Date / Time No Known Allergies Allergy Unknown Verified 01/04/25 15:52 Assessment & Plan Assessment & Plan (1) Bipolar I disorder: Status: Acute Code(s): F31.9 - Bipolar disorder, unspecified (2) JOSE (generalized anxiety disorder): Status: Acute Code(s): F41.1 - Generalized anxiety disorder (3) CAD (coronary artery disease): Status: Acute Code(s): I25.10 - Atherosclerotic heart disease of [place] coronary artery without angina pectoris (4) Alcohol use disorder: Status: Acute Code(s): F10.90 - Alcohol use, unspecified, uncomplicated Plan HPI: Patient is a 49-year-old male with history of CAD status post MIx3 JOSE, alcoholism, hypomanic episodes who presents following suicidal overdose which resulted in need for ICU admission. Patient reports that over the past months he was doing alright and would sometimes get a little snippy here and there. so his PCP started him on Celexa 10mg for a few months which seemed to keep him calmer; patient says he was still getting garcia, couldn't shut his brain at night and trouble sleeping. Pt reports at night, he would have constant worries about stuff i don't even need to worry about like did i water the plants...when should i do the trash to make sure there is enough room in the barrel...how long will it take me to do my chores in the morning... what do i have to do for work... 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 So PCP increased Celexa to 20mg, he thinks around around 2 months ago but is not sure.... Patient says that up until this past week I was fine and then i blew up...that day, i committed suicide..she [girlfriend] went to the store and when she got home i flipped out...i don't remember. Patient says he does not really remember anything, that it was a blackout and he has no idea what led up to his overdose or why he did it. He denies any recent SI at all (only 1 other bout of passive SI 20 years ago). Patient implores global technical writer to discuss this with his girlfriend who seems to be in charge of remembering everything for patient. Discussed gerber and patient is not really clear whether or not these things are true but he thinks he has had episodes of 4-5 days in a row, with lots of energy, barely any sleep, not tired...talking fast...getting a lot of stuff done...maybe spending more...maybe higher sex drive... Again implores global technical writer to ask his girlfriend the details -Alcohol: used to be every day 6-12 beers; now will drink about 6/day every few days -does not know if hx of trauma; saw a therapist as kid but no one told him why... -[phone] Keily Formulation/clinical reasoning: Currently it is not clear what caused SI. His attempt was serious, life- threatening and resulted in need for ICU admission. While he is presenting as stable, this stability is considered fragile. At at this point, it is unclear what happened that resulted in SA and pt requires inpt level of care to assess and treat; otherwise, he remains at risk for serious decompensation. Pt says he was fine up until that day and has no recollection of what transpired other than he ended up in the hospital. Still not sure if patient is actually having manic episodes but he seems to think he might be. Need to find out if patient was drinking at the time as well. For now will diagnose with GED and a mood disorder and rule out bipolar disorder. Will not restart Celexa though from patient's story, it does not seem to have been a problem Hospital course: 01/10 Spoke with patient's partner Keily who confirms patient's depressive and manic episodes. She reports that his dose of Celexa was increased about 2 weeks ago while patient was having a depressive episode where he had diminished interest in things, feeling excessively guilty, low energy, poor concentration, increased sleeping and psychomotor retardation. This depressive episode ended with patient becoming manic and for the past 3 weeks patient was not sleeping at all, talking incessantly, talking fast, hyperactive, highly irritable and saying mean things, starting and stopping projects and not finishing them, trying to clean but making a mess, increased sex drive, spending money on things that none of them needed... She says that she went to the store, came back and patient had empty bottles of Zyprexa, ibuprofen, metformin and Cymbalta; he was holding some pills in his hand and shove them in his mouth in front of her while saying that he feels he has lost everything, has nothing to live for and saying things like I'm done.. She does not remember any other history of manic episodes. Discussed medications, specifically lithium, risks/side effects Met with patient and explained the things Keily said. Patient was very grateful to have the details as he said he does not remember all that much about the past weeks and especially the day he overdosed, having no idea about the pill bottles at all. Discussed medication options and lithium going over risks/side effects which patient understood and said he wanted to try. -will consider medication for JOSE once mood is stabilized 01/11 Patient reports that he is doing well, good mood. Says he had poor sleep last night, but not manic, not struggling with worries. Discussed medication regimen and patient agrees to intuniv to help with focus and daytime anxiety as well as bedtime anxiety. Incubator Tender also met with his partner Keily who feels that he is doing better Plan: CV Q 15 minute checks Continue lithium ER 600 mg q.h.s. Start Intuniv 1 mg b.i.d. for help with attention deficit and anxiety [phone] Keily Patient educated on: diagnosis, medication risk/benefits and therapeutic strategies Informed Consent: understands Reason for continued inpatient stay Substantial Risk for: rapid decompensation Time Spent With Patient Time: Total time managing care of this patient today ____ minutes.
[2025-01-11] MEDS: Albuterol Sulfate 90 MCG 8 GM INHALER 2 PUFF INHALE (17:49)
[2025-01-11] MEDS: Throat Lozenge, Medicated LOZENGE 1 LOZENGE MUCOUS MEM (17:50)
[2025-01-11 20:53] VITALS: BP 150/96; PULSE 75; RESP 18; TEMP 36.4; O2SAT 98
[2025-01-12 08:12] VITALS: BP 125/74; PULSE 65; RESP 16; TEMP 36.6; O2SAT 98
[2025-01-12] MEDS: guanFACINE HCl ER 1 MG TAB.ER.24H PO ×2 (08:21→20:12)
[2025-01-12] MEDS: Fluticasone Propionate 100 MCG BLST.W.DEV 1 PUFF INHALE ×2 (08:22→20:14)
[2025-01-12] MEDS: Aspirin Enteric Coated 81 MG TABLET.DR PO (08:22)
[2025-01-12] MEDS: Dry Mouth Spray 60 ML SPRAY 1 SPRAY MUCOUS MEM ×2 (10:48→12:50)
--- NOTE | 2025-01-12 12:35 | HO.PSYCHPN ---
Subjective Subjective Date of Service: 01/12/25 Reason For Visit: si Interim History: Met with patient; discussed with team Patient reports he is doing well. Good mood and very pleased with medications; denies any side effects. [place] like Intuniv was helpful to keep him focused and also help with sleep last night. Patient said he slept through the night for the 1st time in a very long time Mental Status Exam Mental Status Exam Narrative: Pt is alert and oriented; behavior is a little exuberant; cooperative, friendly and calm; patient is not in distress; dressed in casual attire with unkempt hair but adequate hygiene; mood is described as good and affect congruent; eye contact appropriate; Speech is normal rate, volume and prosody and not pressured; seems to have a lot of energy and is exuberantly thankful but overall no psychomotor agitation/retardation present; thought process is organized and goal directed though forgetful; Thought content is on getting treatment for whatever happened; otherwise pertinent to relevant topics and without any delusional content, paranoid ideations or grandiosity; denies any SI/HI. Denies AVH and there is no evidence of perceptual disturbance. Patients insight and judgment appear intact. Diagnostics Vital Signs (24Hr): Vital Signs - 24 hr 01/11/25 20:53 01/12/25 08:12 Temperature 97.5 F 97.8 F Pulse Rate 75 65 Respiratory Rate 18 16 Blood Pressure 150/96 H 125/74 Pulse Oximetry 98 98 Oxygen Delivery Method Room Air Room Air BMI result Body Mass Index 35.9 Labs 01/09/25 07:47 Medications Medications Current Medications Acetaminophen (Acetaminophen 325 Mg Tablet) 650 mg PO Q6H PRN PRN Reason: Headache/Pain, Scale 1-10 Last Admin: 01/11/25 11:31 Dose: 650 mg Al Hydroxide/Mg Hydroxide (Magnesium Hydrox/Alum Hydrox 30 Ml Oral.Susp) 30 ml PO Q6H PRN PRN Reason: Heartburn/Nausea Last Admin: 01/08/25 21:13 Dose: 30 ml Albuterol Sulfate (Albuterol Sulfate 90 Mcg 8 Gm Inhaler) 2 puff INHALE QID PRN PRN Reason: Wheezing Last Admin: 01/11/25 17:49 Dose: 2 puff Aspirin (Aspirin Enteric Coated 81 Mg Tablet.) 81 mg PO DAILY [place] Last Admin: 01/12/25 08:22 Dose: 81 mg Benzocaine (Throat Lozenge, Medicated Lozenge) 1 lozenge MUCOUS MEM Q2H PRN PRN Reason: Sore Throat Last Admin: 01/11/25 17:50 Dose: 1 lozenge Famotidine (Famotidine 20 Mg Tablet) 40 mg PO BID [facility] Last Admin: 01/12/25 08:21 Dose: 40 mg Fluticasone Propionate (Fluticasone Propionate 100 Mcg Blst.W.Dev) 1 puff INHALE RBID [facility] Last Admin: 01/12/25 08:22 Dose: 1 puff Fluticasone Propionate (Fluticasone Propionate Nasal 16 Gm [place]) 1 spray NOSTRIL-B BID [facility] Last Admin: 01/12/25 08:22 Dose: 1 spray Guanfacine HCl (Guanfacine Hcl Er 1 Mg Tab.Er.24h) 1 mg PO BID [facility] Last Admin: 01/12/25 08:21 Dose: 1 mg Hydroxyzine HCl (Hydroxyzine Hcl 25 Mg Tablet) 25 mg PO Q6H PRN PRN Reason: mild anxiety [place] Carbonate ([place] Carbonate Er 300 Mg Tablet.Er) 600 mg PO BEDTIME [facility] Last Admin: 01/11/25 20:30 Dose: 600 mg Loratadine (Loratadine 10 Mg Tablet) 10 mg PO DAILY [facility] Last Admin: 01/12/25 08:22 Dose: 10 mg Magnesium Hydroxide (Milk Of Magnesia 30 Ml Oral.Susp) 30 ml PO DAILY PRN PRN Reason: Constipation Nicotine (Nicotine 21 Mg Patch.Td24) 21 mg TRANSDERMA DAILY PRN PRN Reason: smoking cessation Nicotine Polacrilex (Nicotine Polacrilex 2 Mg Gum) 4 mg BUCCAL Q2H PRN PRN Reason: Nicotine Cravings Saliva Substitute (Dry [place]outh [place] 60 Ml [place]) 1 spray MUCOUS MEM Q2H PRN PRN Reason: Dry [place]outh Last Admin: 01/12/25 10:48 Dose: 1 spray Trazodone HCl (Trazodone Hcl 50 Mg Tablet) 50 mg PO BEDTIME MRX1 PRN PRN Reason: Insomnia Last Admin: 01/11/25 20:30 Dose: 50 mg Allergies Allergies Allergy/AdvReac Type Severity Reaction Status Date / Time No Known Allergies Allergy Unknown Verified 01/04/25 15:52 Assessment & Plan Assessment & Plan (1) Bipolar I disorder: Status: Acute Code(s): F31.9 - Bipolar disorder, unspecified (2) JOSE (generalized anxiety disorder): Status: Acute Code(s): F41.1 - Generalized anxiety disorder (3) CAD (coronary artery disease): Status: Acute Code(s): I25.10 - Atherosclerotic heart disease of [place] coronary artery without angina pectoris (4) Alcohol use disorder: Status: Acute Code(s): F10.90 - Alcohol use, unspecified, uncomplicated Plan HPI: Patient is a 49-year-old male with history of CAD status post MIx3 JOSE, alcoholism, hypomanic episodes who presents following suicidal overdose which resulted in need for ICU admission. Patient reports that over the past months he was doing alright and would sometimes get a little snippy here and there. so his PCP started him on Celexa 10mg for a few months which seemed to keep him calmer; patient says he was still getting garcia, couldn't shut his brain at night and trouble sleeping. Pt reports at night, he would have constant worries about stuff i don't even need to worry about like did i water the plants...when should i do the trash to make sure there is enough room in the barrel...how long will it take me to do my chores in the morning... what do i have to do for work... 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 So PCP increased Celexa to 20mg, he thinks around around 2 months ago but is not sure.... Patient says that up until this past week I was fine and then i blew up...that day, i committed suicide..she [girlfriend] went to the store and when she got home i flipped out...i don't remember. Patient says he does not really remember anything, that it was a blackout and he has no idea what led up to his overdose or why he did it. He denies any recent SI at all (only 1 other bout of passive SI 20 years ago). Patient implores signwriter to discuss this with his girlfriend who seems to be in charge of remembering everything for patient. Discussed gerber and patient is not really clear whether or not these things are true but he thinks he has had episodes of 4-5 days in a row, with lots of energy, barely any sleep, not tired...talking fast...getting a lot of stuff done...maybe spending more...maybe higher sex drive... Again implores signwriter to ask his girlfriend the details -Alcohol: used to be every day 6-12 beers; now will drink about 6/day every few days -does not know if hx of trauma; saw a therapist as kid but no one told him why... -[phone] Keily Formulation/clinical reasoning: Currently it is not clear what caused SI. His attempt was serious, life-threatening and resulted in need for ICU admission. While he is presenting as stable, this stability is considered fragile. At at this point, it is unclear what happened that resulted in SA and pt requires inpt level of care to assess and treat; otherwise, he remains at risk for serious decompensation. Pt says he was fine up until that day and has no recollection of what transpired other than he ended up in the hospital. Still not sure if patient is actually having manic episodes but he seems to think he might be. Need to find out if patient was drinking at the time as well. For now will diagnose with GED and a mood disorder and rule out bipolar disorder. Will not restart Celexa though from patient's story, it does not seem to have been a problem Hospital course: 01/10 Spoke with patient's partner Keily who confirms patient's depressive and manic episodes. She reports that his dose of Celexa was increased about 2 weeks ago while patient was having a depressive episode where he had diminished interest in things, feeling excessively guilty, low energy, poor concentration, increased sleeping and psychomotor retardation. This depressive episode ended with patient becoming manic and for the past 3 weeks patient was not sleeping at all, talking incessantly, talking fast, hyperactive, highly irritable and saying mean things, starting and stopping projects and not finishing them, trying to clean but making a mess, increased sex drive, spending money on things that none of them needed... She says that she went to the store, came back and patient had empty bottles of Zyprexa, ibuprofen, metformin and Cymbalta; he was holding some pills in his hand and shove them in his mouth in front of her while saying that he feels he has lost everything, has nothing to live for and saying things like I'm done.. She does not remember any other history of manic episodes. Discussed medications, specifically lithium, risks/side effects Met with patient and explained the things Keily said. Patient was very grateful to have the details as he said he does not remember all that much about the past weeks and especially the day he overdosed, having no idea about the pill bottles at all. Discussed medication options and lithium going over risks/side effects which patient understood and said he wanted to try. -will consider medication for JOSE once mood is stabilized 01/11 Patient reports that he is doing well, good mood. Says he had poor sleep last night, but not manic, not struggling with worries. Discussed medication regimen and patient agrees to intuniv to help with focus and daytime anxiety as well as bedtime anxiety. 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 Good mood and very pleased with medications; denies any side effects. [place] like Intuniv was helpful to keep him focused and also help with sleep last night. Patient said he slept through the night for the 1st time in a very long time -patient a little exuberant; not sure if it is hypomania or baseline; will get collateral Plan: CV Q 15 minute checks Continue lithium ER 600 mg q.h.s. Start Intuniv 1 mg b.i.d. for help with attention deficit and anxiety [phone] Keily Patient educated on: diagnosis and medication risk/benefits Informed Consent: understands Reason for continued inpatient stay Substantial Risk for: rapid decompensation Time Spent With Patient Time: Total time managing care of this patient today ____ minutes.
[2025-01-12 19:49] VITALS: BP 148/78; PULSE 86; RESP 18; TEMP 37.1; O2SAT 98
[2025-01-13 08:14] VITALS: BP 132/77; PULSE 62; RESP 16; TEMP 36.4; O2SAT 99
[2025-01-13] MEDS: guanFACINE HCl ER 1 MG TAB.ER.24H PO ×2 (08:56→20:50)
[2025-01-13] MEDS: Aspirin Enteric Coated 81 MG TABLET.DR PO (08:56)
[2025-01-13] MEDS: Fluticasone Propionate 100 MCG BLST.W.DEV 1 PUFF INHALE ×2 (09:00→20:54)
[2025-01-13] MEDS: Dry Mouth Spray 60 ML SPRAY 1 SPRAY MUCOUS MEM ×2 (09:00→17:14)
--- NOTE | 2025-01-13 09:35 | HO.PSYCHPN ---
Subjective Subjective Date of Service: 01/13/25 Reason For Visit: si Interim History: met with patient; discussed with team pt remains in good mood, eating and sleeping well and with good behavioral/impulse control; he's appropriate with peers and staff and engaged in treatment. Pt says he feels fully back to his regular self. Adjunct Phlebotomy Instructor discussed case with his Partner Keily who agrees he is fully back to his regular self and not hypomanic. pt and partner report they have been ordered by court to have house emptyied byt this monday and so pt is asking for discharge. Discussed meds, need for labs which will be premature; pt understands and still wants to discharge. Mental Status Exam Mental Status Exam Narrative: Pt is alert and oriented; behavior is organized, cooperative, friendly and calm; patient is not in distress; dressed in casual attire with unkempt hair but adequate hygiene; mood is described as good and affect congruent; eye contact appropriate; Speech is normal rate, volume and prosody and not pressured; seems to have a lot of energy and is exuberantly thankful but overall no psychomotor agitation/retardation present; thought process is organized and goal directed though forgetful; Thought content is on getting treatment for whatever happened; otherwise pertinent to relevant topics and without any delusional content, paranoid ideations or grandiosity; denies any SI/HI. Denies AVH and there is no evidence of perceptual disturbance. Patients insight and judgment appear intact. Diagnostics Vital Signs (24Hr): Vital Signs - 24 hr 01/12/25 19:49 01/13/25 08:14 Temperature 98.7 F 97.5 F Pulse Rate 86 62 Respiratory Rate 18 16 Blood Pressure 148/78 H 132/77 Pulse Oximetry 98 99 Oxygen Delivery Method Room Air Room Air BMI result Body Mass Index 35.9 Labs 01/14/25 08:12 Medications Medications Current Medications Acetaminophen (Acetaminophen 325 Mg Tablet) 650 mg PO Q6H PRN PRN Reason: Headache/Pain, Scale 1-10 Last Admin: 01/11/25 11:31 Dose: 650 mg Al Hydroxide/Mg Hydroxide (Magnesium Hydrox/Alum Hydrox 30 Ml Oral.Susp) 30 ml PO Q6H PRN PRN Reason: Heartburn/Nausea Last Admin: 01/08/25 21:13 Dose: 30 ml Albuterol Sulfate (Albuterol Sulfate 90 Mcg 8 Gm Inhaler) 2 puff INHALE QID PRN PRN Reason: Wheezing Last Admin: 01/11/25 17:49 Dose: 2 puff Aspirin (Aspirin Enteric Coated 81 Mg Tablet.Dr) 81 mg PO DAILY [facility] Last Admin: 01/13/25 08:56 Dose: 81 mg Benzocaine (Throat Lozenge, Medicated Lozenge) 1 lozenge MUCOUS MEM Q2H PRN PRN Reason: Sore Throat Last Admin: 01/11/25 17:50 Dose: 1 lozenge Famotidine (Famotidine 20 Mg Tablet) 40 mg PO BID [facility] Last Admin: 01/13/25 08:56 Dose: 40 mg Fluticasone Propionate (Fluticasone Propionate 100 Mcg Blst.W.Dev) 1 puff INHALE RBID [facility] Last Admin: 01/13/25 09:00 Dose: 1 puff Fluticasone Propionate (Fluticasone Propionate Nasal 16 Gm [place]) 1 spray NOSTRIL-B BID [facility] Last Admin: 01/13/25 09:00 Dose: 1 spray Guanfacine HCl (Guanfacine Hcl Er 1 Mg Tab.Er.24h) 1 mg PO BID [facility] Last Admin: 01/13/25 08:56 Dose: 1 mg Hydroxyzine HCl (Hydroxyzine Hcl 25 Mg Tablet) 25 mg PO Q6H PRN PRN Reason: mild anxiety [place] Carbonate ([place] Carbonate Er 300 Mg Tablet.Er) 600 mg PO BEDTIME [facility] Last Admin: 01/12/25 20:12 Dose: 600 mg Loratadine (Loratadine 10 Mg Tablet) 10 mg PO DAILY [facility] Last Admin: 01/13/25 08:56 Dose: 10 mg Magnesium Hydroxide (Milk Of Magnesia 30 Ml Oral.Susp) 30 ml PO DAILY PRN PRN Reason: Constipation Nicotine (Nicotine 21 Mg Patch.Td24) 21 mg TRANSDERMA DAILY PRN PRN Reason: smoking cessation Nicotine Polacrilex (Nicotine Polacrilex 2 Mg Gum) 4 mg BUCCAL Q2H PRN PRN Reason: Nicotine Cravings Saliva Substitute (Dry Mouth Bondurant 60 Ml Bondurant) 1 spray MUCOUS MEM Q2H PRN PRN Reason: Dry Mouth Last Admin: 01/13/25 09:00 Dose: 1 spray Trazodone HCl (Trazodone Hcl 50 Mg Tablet) 50 mg PO BEDTIME MRX1 PRN PRN Reason: Insomnia Last Admin: 01/11/25 20:30 Dose: 50 mg Allergies Allergies Allergy/AdvReac Type Severity Reaction Status Date / Time No Known Allergies Allergy Unknown Verified 01/04/25 15:52 Assessment & Plan Assessment & Plan (1) Bipolar I disorder: Status: Acute Code(s): F31.9 - Bipolar disorder, unspecified (2) JOSE (generalized anxiety disorder): Status: Acute Code(s): F41.1 - Generalized anxiety disorder (3) CAD (coronary artery disease): Status: Acute Code(s): I25.10 - Atherosclerotic heart disease of [place] coronary artery without angina pectoris (4) Alcohol use disorder: Status: Acute Code(s): F10.90 - Alcohol use, unspecified, uncomplicated Plan HPI: Patient is a 49-year-old male with history of CAD status post MIx3 JOSE, alcoholism, hypomanic episodes who presents following suicidal overdose which resulted in need for ICU admission. Patient reports that over the past months he was doing alright and would sometimes get a little snippy here and there. so his PCP started him on Celexa 10mg for a few months which seemed to keep him calmer; patient says he was still getting garcia, couldn't shut his brain at night and trouble sleeping. Pt reports at night, he would have constant worries about stuff i don't even need to worry about like did i water the plants...when should i do the trash to make sure there is enough room in the barrel...how long will it take me to do my chores in the morning... what do i have to do for work... 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 So PCP increased Celexa to 20mg, he thinks around around 2 months ago but is not sure.... Patient says that up until this past week I was fine and then i blew up...that day, i committed suicide..she [girlfriend] went to the store and when she got home i flipped out...i don't remember. Patient says he does not really remember anything, that it was a blackout and he has no idea what led up to his overdose or why he did it. He denies any recent SI at all (only 1 other bout of passive SI 20 years ago). Patient implores principal technical writer to discuss this with his girlfriend who seems to be in charge of remembering everything for patient. Discussed gerber and patient is not really clear whether or not these things are true but he thinks he has had episodes of 4-5 days in a row, with lots of energy, barely any sleep, not tired...talking fast...getting a lot of stuff done...maybe spending more...maybe higher sex drive... Again implores principal technical writer to ask his girlfriend the details -Alcohol: used to be every day 6-12 beers; now will drink about 6/day every few days -does not know if hx of trauma; saw a therapist as kid but no one told him why... -[phone] Keily Formulation/clinical reasoning: Currently it is not clear what caused SI. His attempt was serious, life-threatening and resulted in need for ICU admission. While he is presenting as stable, this stability is considered fragile. At at this point, it is unclear what happened that resulted in SA and pt requires inpt level of care to assess and treat; otherwise, he remains at risk for serious decompensation. Pt says he was fine up until that day and has no recollection of what transpired other than he ended up in the hospital. Still not sure if patient is actually having manic episodes but he seems to think he might be. Need to find out if patient was drinking at the time as well. For now will diagnose with GED and a mood disorder and rule out bipolar disorder. Will not restart Celexa though from patient's story, it does not seem to have been a problem Hospital course: 01/10 Spoke with patient's partner Keily who confirms patient's depressive and manic episodes. She reports that his dose of Celexa was increased about 2 weeks ago while patient was having a depressive episode where he had diminished interest in things, feeling excessively guilty, low energy, poor concentration, increased sleeping and psychomotor retardation. This depressive episode ended with patient becoming manic and for the past 3 weeks patient was not sleeping at all, talking incessantly, talking fast, hyperactive, highly irritable and saying mean things, starting and stopping projects and not finishing them, trying to clean but making a mess, increased sex drive, spending money on things that none of them needed... She says that she went to the store, came back and patient had empty bottles of Zyprexa, ibuprofen, metformin and Cymbalta; he was holding some pills in his hand and shove them in his mouth in front of her while saying that he feels he has lost everything, has nothing to live for and saying things like I'm done.. She does not remember any other history of manic episodes. Discussed medications, specifically lithium, risks/side effects Met with patient and explained the things Keily said. Patient was very grateful to have the details as he said he does not remember all that much about the past weeks and especially the day he overdosed, having no idea about the pill bottles at all. Discussed medication options and lithium going over risks/side effects which patient understood and said he wanted to try. -will consider medication for JOSE once mood is stabilized 01/11 Patient reports that he is doing well, good mood. Says he had poor sleep last night, but not manic, not struggling with worries. Discussed medication regimen and patient agrees to intuniv to help with focus and daytime anxiety as well as bedtime anxiety. Adjunct Phlebotomy Instructor also met with his partner Keily who feels that he is doing better 01/12 Patient reports he is doing well. Good mood and very pleased with medications; denies any side effects. [place] like Intuniv was helpful to keep him focused and also help with sleep last night. Patient said he slept through the night for the 1st time in a very long time -patient a little exuberant; not sure if it is hypomania or baseline; will get collateral 01/13 pt remains in good mood, eating and sleeping well and with good behavioral/impulse control; he's appropriate with peers and staff and engaged in treatment. Pt says he feels fully back to his regular self. Adjunct Phlebotomy Instructor discussed case with his Partner Keily who agrees he is fully back to his regular self and not hypomanic. pt and partner report they have been ordered by court to have house emptyied byt this monday and so pt is asking for discharge. Discussed meds, need for labs which will be premature; pt understands and still wants to discharge (also his mother is in ICU and he is HCP). pt is at baseline;he is not in immiment risk for harm to self or others and appropriate to return to community for tx. Request for dc honored. Plan: CV Q 15 minute checks Continue lithium ER 600 mg q.h.s. Start Intuniv 1 mg b.i.d. for help with attention deficit and anxiety [phone] Keily Regarding [place], Risks, side-effects and benefits reviewed with pt, including, but not limited to, damage to kidneys and thyroid; pt was educated to stay hydrated, to watch for symptoms of lithium toxicity (also discussed, including but not limited to nausea, tremor, confusion) and the need to stay away from OTC NSAIDs (specifics reviewed) aside from Tylenol. Patient educated on: diagnosis, medication risk/benefits and therapeutic strategies Informed Consent: understands Reason for continued inpatient stay Substantial Risk for: stable for discharge Time Spent With Patient Time: Total time managing care of this patient today ____ minutes.
--- NOTE | 2025-01-13 10:13 | HO.WOUND ---
Wound Consult: follow up 49yr old male admitted to [facility] on 01/08/25- See progress notes and H&P for detailed history. Wound follow up today for device related pressure injury to left forearm. Patient agreeable to assessment and photo documentation. Left forearm Etiology: previously documented Stage 1 device related pressure injury from IV noted on inpatient admission Wound Bed: blanching intact skin with distal fading bruising Drainage / Odor: none Cher wound: ? No Induration, Fluctuance or Warmth noted Pain: none Goals of Treatment: ? no topical treatment required at this time Recommendations: Re-consult wound care Nurse for wound deterioration or wound changes.
[2025-01-13] MEDS: Albuterol Sulfate 90 MCG 8 GM INHALER 2 PUFF INHALE (17:14)
[2025-01-13 20:00] VITALS: BP 125/60; PULSE 71; RESP 18; TEMP 36.9; O2SAT 92
[2025-01-14 08:00] VITALS: BP 122/68; PULSE 53; RESP 20; TEMP 35.9; O2SAT 100
[2025-01-14 08:56] LABS: Anion Gap 12 (12-20); Blood Urea Nitrogen 19 mg/dL (9-16); Calcium 9.8 mg/dL (8.4-10.2); Carbon Dioxide 27 mmol/L (22-29); Chloride 105 mmol/L (96-108); Creatinine Clr Calc Pharmacy 88.0; Estimated Glomerular Filt Rate 60; Potassium 4.7 mmol/L (3.3-5.1); Sodium 139 mmol/L (135-145)
[2025-01-14] MEDS: Aspirin Enteric Coated 81 MG TABLET.DR PO (09:03)
[2025-01-14] MEDS: guanFACINE HCl ER 1 MG TAB.ER.24H PO (09:03)
--- NOTE | 2025-01-14 10:09 | PM.PSYDC ---
DS: Providers Provider Date of Service: 01/14/25 Date of admission: 01/08/25 13:26 Date of discharge: 01/14/25 Primary care physician: Unknown Physician Attending physician on admission: Blair Garland Attending physician on discharge: Blair Garland DS: Diagnosis Discharge Diagnosis (1) Bipolar I disorder: Status: Acute (2) JOSE (generalized anxiety disorder): Status: Acute (3) CAD (coronary artery disease): Status: Acute (4) Alcohol use disorder: Status: Acute DS: Medications Discharge Medications Home Medications: Home Medications ?Medication ?Instructions ?Recorded ?Confirmed albuterol sulfate 90 mcg/actuation 2 puff inhalation QID PRN wheezing 01/04/25 01/08/25 aerosol inhaler (Ventolin HFA) aspirin 81 mg tablet,delayed 81 mg PO DAILY 01/04/25 01/08/25 release cetirizine 10 mg tablet 10 mg PO DAILY 01/04/25 01/08/25 famotidine 40 mg tablet 40 mg PO BID 01/04/25 01/08/25 fluticasone furoate 100 1 inh inhalation DAILY 01/04/25 01/08/25 mcg/actuation blister powder for inhalation fluticasone propionate 50 1 spray intranasal BID 01/04/25 01/08/25 mcg/actuation nasal spray,suspension Previous Rx's ?Medication ?Instructions ?Recorded guanfacine 1 mg tablet,extended 1 mg PO BID 30 days #60 tabs 01/14/25 release 24 hr lithium carbonate 600 mg capsule 600 mg PO BEDTIME 30 days #30 caps 01/14/25 trazodone 50 mg tablet 50 mg PO BEDTIME PRN Insomnia 30 01/14/25 days #30 tabs xylitol-yerba suzanne mucosal spray 1 spray mucous membrane Q2H PRN 01/14/25 with pump ([facility] [place]) Dry Mouth 30 days #236 mL Mental Status Exam Mental Status Exam Narrative: Pt is alert and oriented; behavior is organized, cooperative, friendly and calm; patient is not in distress; dressed in casual attire with unkempt hair but adequate hygiene; mood is described as good and affect congruent; eye contact appropriate; Speech is normal rate, volume and prosody and not pressured; seems to have a lot of energy and is exuberantly thankful but overall no psychomotor agitation/retardation present; thought process is organized and goal directed though forgetful; Thought content is on getting treatment for whatever happened; otherwise pertinent to relevant topics and without any delusional content, paranoid ideations or grandiosity; denies any SI/HI. Denies AVH and there is no evidence of perceptual disturbance. Patients insight and judgment appear intact. Data Data Completed and Pending Completed studies during hospitalization [Text1]: 01/09/25 01/09/25 01/09/25 07:47 07:47 07:47 Sodium 142 Potassium 4.3 Chloride 109 H Carbon Dioxide 25 Anion Gap 12 BUN 18 H Creatinine 1.19 Estim Creat Clear Calc 94.3 Estimated GFR > 60 Random Glucose 110 Estimat Average Glucose 105 Hemoglobin A1c % 5.3 Calcium 9.8 D Total Bilirubin 0.5 AST 76 H ALT 64 H Alkaline Phosphatase 80 Total Protein 7.7 Albumin 4.7 Triglycerides 238 H 240 H Cholesterol 233 H 237 H LDL Cholesterol, Calc 142 H HDL Cholesterol TSH [place] 01/09/25 01/09/25 01/14/25 07:47 07:47 08:12 Sodium 139 Potassium 4.7 Chloride 105 Carbon Dioxide 27 Anion Gap 12 BUN 19 H Creatinine 1.28 Estim Creat Clear Calc 88.0 Estimated GFR 60 Random Glucose 106 Estimat Average Glucose Hemoglobin A1c % Calcium 9.8 Total Bilirubin AST ALT Alkaline Phosphatase Total Protein Albumin Triglycerides Cholesterol LDL Cholesterol, Calc 144 H HDL Cholesterol 44 45 TSH 1.68 1.52 [place] Pending DS: Summary Hospital Course Hospital Course: HPI: Patient is a 49-year-old male with history of CAD status post MIx3 JOSE, alcoholism, hypomanic episodes who presents following suicidal overdose which resulted in need for ICU admission. Patient reports that over the past months he was doing alright and would sometimes get a little snippy here and there. so his PCP started him on Celexa 10mg for a few months which seemed to keep him calmer; patient says he was still getting garcia, couldn't shut his brain at night and trouble sleeping. Pt reports at night, he would have constant worries about stuff i don't even need to worry about like did i water the plants...when should i do the trash to make sure there is enough room in the barrel...how long will it take me to do my chores in the morning... what do i have to do for work... 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 So PCP increased Celexa to 20mg, he thinks around around 2 months ago but is not sure.... Patient says that up until this past week I was fine and then i blew up...that day, i committed suicide..she [girlfriend] went to the store and when she got home i flipped out...i don't remember. Patient says he does not really remember anything, that it was a blackout and he has no idea what led up to his overdose or why he did it. He denies any recent SI at all (only 1 other bout of passive SI 20 years ago). Patient implores fiction and nonfiction writer prose to discuss this with his girlfriend who seems to be in charge of remembering everything for patient. Discussed gerber and patient is not really clear whether or not these things are true but he thinks he has had episodes of 4-5 days in a row, with lots of energy, barely any sleep, not tired...talking fast...getting a lot of stuff done...maybe spending more...maybe higher sex drive... Again implores fiction and nonfiction writer prose to ask his girlfriend the details -Alcohol: used to be every day 6-12 beers; now will drink about 6/day every few days -does not know if hx of trauma; saw a therapist as kid but no one told him why... -[phone] Keily Formulation/clinical reasoning: Currently it is not clear what caused SI. His attempt was serious, life-threatening and resulted in need for ICU admission. While he is presenting as stable, this stability is considered fragile. At at this point, it is unclear what happened that resulted in SA and pt requires inpt level of care to assess and treat; otherwise, he remains at risk for serious decompensation. Pt says he was fine up until that day and has no recollection of what transpired other than he ended up in the hospital. Still not sure if patient is actually having manic episodes but he seems to think he might be. Need to find out if patient was drinking at the time as well. For now will diagnose with GED and a mood disorder and rule out bipolar disorder. Will not restart Celexa though from patient's story, it does not seem to have been a problem Hospital course: 01/10 Spoke with patient's partner Keily who confirms patient's depressive and manic episodes. She reports that his dose of Celexa was increased about 2 weeks ago while patient was having a depressive episode where he had diminished interest in things, feeling excessively guilty, low energy, poor concentration, increased sleeping and psychomotor retardation. This depressive episode ended with patient becoming manic and for the past 3 weeks patient was not sleeping at all, talking incessantly, talking fast, hyperactive, highly irritable and saying mean things, starting and stopping projects and not finishing them, trying to clean but making a mess, increased sex drive, spending money on things that none of them needed... She says that she went to the store, came back and patient had empty bottles of Zyprexa, ibuprofen, metformin and Cymbalta; he was holding some pills in his hand and shove them in his mouth in front of her while saying that he feels he has lost everything, has nothing to live for and saying things like I'm done.. She does not remember any other history of manic episodes. Discussed medications, specifically lithium, risks/side effects Met with patient and explained the things Keily said. Patient was very grateful to have the details as he said he does not remember all that much about the past weeks and especially the day he overdosed, having no idea about the pill bottles at all. Discussed medication options and lithium going over risks/side effects which patient understood and said he wanted to try. -will consider medication for JOSE once mood is stabilized 01/11 Patient reports that he is doing well, good mood. Says he had poor sleep last night, but not manic, not struggling with worries. Discussed medication regimen and patient agrees to intuniv to help with focus and daytime anxiety as well as bedtime anxiety. Executive [employer] Consultant also met with his partner Keily who feels that he is doing better 01/12 Patient reports he is doing well. Good mood and very pleased with medications; denies any side effects. [place] like Intuniv was helpful to keep him focused and also help with sleep last night. Patient said he slept through the night for the 1st time in a very long time -patient a little exuberant; not sure if it is hypomania or baseline; will get collateral 01/13 pt remains in good mood, eating and sleeping well and with good behavioral/impulse control; he's appropriate with peers and staff and engaged in treatment. Pt says he feels fully back to his regular self. Executive [employer] Consultant discussed case with his Partner Keily who agrees he is fully back to his regular self and not hypomanic. pt and partner report they have been ordered by court to have house emptyied byt this monday and so pt is asking for discharge. Discussed meds, need for labs which will be premature; pt understands and still wants to discharge (also his mother is in ICU and he is HCP). pt is at baseline;he is not in immiment risk for harm to self or others and appropriate to return to community for tx. Request for dc honored. Plan: CV Q 15 minute checks Continue lithium ER 600 mg q.h.s. Start Intuniv 1 mg b.i.d. for help with attention deficit and anxiety [phone] Keily Regarding [place], Risks, side-effects and benefits reviewed with pt, including, but not limited to, damage to kidneys and thyroid; pt was educated to stay hydrated, to watch for symptoms of lithium toxicity (also discussed, including but not limited to nausea, tremor, confusion) and the need to stay away from OTC NSAIDs (specifics reviewed) aside from Tylenol. Time spent discussing smoking cessation with patient: 3 to 10 minutes Status at Discharge Functional status at discharge: independent ambulation Overall status at discharge: patient is back to baseline Time Spent with Patient Time attestation: Total time managing care of this patient today _40___ minutes. Time spent: Greater than 30 minutes Specific discharge activities: Met with patient; discussed with team; charting; prescriptions Discharge Plan Discharge Anticipated Discharge Date/Time: 01/14/25 10:08 Patient Disposition: Home, Self-Care Discharge Diagnosis: Bipolar I disorder Referrals: Dewey Fernandez [Other] - 01/16/25 2:00 pm Referral Note: Follow-up appointment with Ivonne Fernandez [Other] - 1 Week Referral Note: *An internal referral has been placed by your therapist for immediate medication management. Please follow-up on this request. [facility] [Other] - 1 Week Referral Note: *In the event that you change your mind about PHP, please reach out for an intake appointment. PHP occurs M-F from 9 am-2:30 am for approximately 2 weeks. Physician,Unknown J [Primary Care Provider, Medical] - 1 Week Referral Note: [facility] Doctors office will call you to schedule a post DC follow up appointment today Discharge Medications: New lithium carbonate 600 mg capsule 600 mg PO BEDTIME 30 Days Qty: 30 0RF guanfacine 1 mg Tablet Extended Release 24 Hr 1 mg PO BID 30 Days Qty: 60 0RF trazodone 50 mg Tablet 50 mg PO BEDTIME PRN (Reason: Insomnia) 30 Days Qty: 30 0RF [employer] [place] With Pump 1 spray mucous membrane Q2H PRN (Reason: Dry Mouth) 30 Days Qty: 236 0RF Continued cetirizine 10 mg tablet 10 mg PO DAILY famotidine 40 mg tablet 40 mg PO BID aspirin 81 mg tablet,delayed release (DR/EC) 81 mg PO DAILY albuterol sulfate [Ventolin HFA] 90 mcg/actuation HFA aerosol inhaler 2 puff INHALATION QID PRN (Reason: wheezing) fluticasone propionate 50 mcg/actuation spray,suspension 1 spray intranasal BID fluticasone furoate 100 mcg/actuation blister with device 1 inh inhalation DAILY Discontinued citalopram 20 mg tablet 20 mg PO DAILY Discharge Orders: Discharge Order (Routine); Ordered 01/14/25 Ordered By: Blair Garland Diet: Regular diet Activity on Discharge: As tolerated Stand Alone Forms: Patient Portal Discharge page, Community Support Print Language: Sinhala Care Plan Goals: Maintain mood and safe behaviors Take medications as prescribed Continue to pursue sobriety Practice coping skills Continue with outpatient providers and reach out to them as needed Health Concerns: Mood stability and behaviors Sobriety CAD Elevated Cholesterol Plan of Treatment: Follow up with your PCP, psychiatric provider and other outpatient providers regarding above concerns Take medications as prescribed Assessment: Risk assessment at time of discharge:? Patient was interviewed prior to discharge and found to be fully oriented and without any SI or HI. Patient has improved insight and judgment and wants to continue treatment. Patient is not in imminent risk of harm to self or others and has a safety plan that includes presenting to the closest ER or calling 911 if feeling unsafe.? Patient has been observed closely by nursing and unit staff throughout admission; patient has not engaged in any behaviors that suggest dangerousness to self or others and has demonstrated appropriate behaviors and impulse control Discharge Date/Time: 01/14/25 11:40
[2025-01-14 11:12] LABS: Lithium 0.48 mmol/L (0.60-1.20)
== END 2025-01-14 11:40 | disposition home or self-care (01) | DRG 753 ==
PROVIDERS: Nurse Practitioner Family; Admitting Provider Psychiatry & Neurology Psychiatry; Visit Provider Psychiatry & Neurology Psychiatry
DX: F31.9 Bipolar disorder, unspecified (principal); F10.20 Alcohol dependence, uncomplicated; F41.1 Generalized anxiety disorder; I25.10 Atherosclerotic heart disease of native coronary artery without angina pectoris; K21.9 Gastro-esophageal reflux disease without esophagitis; R03.0 Elevated blood-pressure reading, without diagnosis of hypertension; Z91.51 Personal history of suicidal behavior; Z79.82 Long term (current) use of aspirin; Z87.891 Personal history of nicotine dependence; Z79.899 Other long term (current) drug therapy
CPT/HCPCS: 36415; 80048; 80053; 80061; 80178; 83036; 84443

== ENCOUNTER → 2025-01-08 13:26 | Outpatient (BNV) | payer OTHER, SELFPAY | PROVIDERS: Admitting Provider Psychiatry & Neurology Psychiatry; Visit Provider Nurse Practitioner Family | DX: I25.10 Atherosclerotic heart disease of native coronary artery without angina pectoris (principal) | CPT/HCPCS: 99222 ==

== ENCOUNTER → 2025-01-08 13:26 | Outpatient (BNV) | payer OTHER, SELFPAY | PROVIDERS: Admitting Provider Psychiatry & Neurology Psychiatry; Visit Provider Psychiatry & Neurology Psychiatry | DX: F31.9 Bipolar disorder, unspecified (principal); F41.1 Generalized anxiety disorder; I25.10 Atherosclerotic heart disease of native coronary artery without angina pectoris; F10.90 Alcohol use, unspecified, uncomplicated | CPT/HCPCS: 99232 ==